=== PATIENT | male | born 1950 | race Caucasian/White ===

== ENCOUNTER 2024-07-09 14:13 | Inpatient (IN) | payer MEDICARE, SELFPAY ==
[2024-07-09] VITALS (32 sets, daily range): BP systolic 97–141; BP diastolic 69–99; PULSE 74–120; TEMP 36–36.9; O2SAT 83–98; BMI 31.8
--- NOTE | 2024-07-09 14:19 | XR_ITS ---
The [address] [address] Patient Name: ANDERSON AGUILAR MRN: [id number] date: 1950 Sex: M Assigned Patient Location: ED.MAIN Current Patient Location: ED.MAIN Accession/Order Number: [id number] Exam Date: 07/09/2024 15:20 Report Date: 07/09/2024 15:51 At the request of: ADE MAR Procedure: XR chest 1V EXAMINATION: XR chest 1V HISTORY: sepsis COMPARISON: No relevant comparison available. TECHNIQUE: AP portable FINDINGS: LUNGS: Low lung volumes. The lungs are clear VASCULATURE: No increased pulmonary vasculature. PLEURA: No pneumothorax, effusion, or pleural thickening. CARDIAC: No cardiomegaly or cardiac silhouette abnormality. MEDIASTINUM: No visible mass or adenopathy. BONES: No fracture or visible bone lesion. Bilateral shoulder arthroplasty OTHER: Negative. XR/XR chest 1V IMPRESSION: Low lung volumes, clear lungs. Electronically authenticated by: OMER VILLAREAL Date: 07/09/2024 15:51
--- NOTE | 2024-07-09 14:19 | ECG_ITS ---
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
--- NOTE | 2024-07-09 14:23 | CT_ITS ---
The [address] [address] Patient Name: ANDERSON AGUILAR MRN: [facility]:[id number] date: 1950 Sex: M Assigned Patient Location: ED.MAIN Current Patient Location: Accession/Order Number: [id number] Exam Date: 07/09/2024 14:45 Report Date: 07/09/2024 15:25 At the request of: ADE MAR Procedure: CT head/brain wo con EXAM: CT head/brain wo con HISTORY: ams COMPARISON: None. TECHNIQUE: Noncontrast CT imaging of the head was performed with coronal and sagittal reformats. This CT exam was performed using one or more of the following dose reduction techniques: Automated exposure control, adjustment of the MA and/or kV according to patient size, or use of iterative reconstruction technique. FINDINGS: Calvarium/skull base: No evidence of acute fracture or destructive lesion. Bilaterally ocular lens replacements. Mastoid air cells are well aerated. Paranasal sinuses: No air fluid levels. Brain: No acute intracranial hemorrhage. No acute large vascular territory infarct. Mild to moderate parenchymal volume loss. Minimal symmetric hypoattenuation involving the frontal predominant supratentorial white matter which while nonspecific most commonly relates to sequela of small vessel disease. No mass lesion or mass effect. No hydrocephalus. CT/CT head/brain wo con IMPRESSION: No acute large vascular territory infarct or acute intracranial hemorrhage. If there is clinical concern for acute ischemia recommend MRI brain for further evaluation. Electronically authenticated by: ANALIA AYALA Date: 07/09/2024 15:25
--- NOTE | 2024-07-09 14:23 | ED.GENADUL1 ---
HPI HPI - General Adult General Chief complaint: Arrhythmia/Palpitations Stated complaint: WEAKNESS Time Seen by Provider: 07/09/24 14:19 Source: patient Mode of arrival: ambulance History of Present Illness HPI narrative: Patient presents to ED from the [facility] for evaluation. Apparently he was not as responsive yesterday and sort of lethargic and then he was much worse today so they sent him over for evaluation. He has increased confusion lethargy elevated heart rate. There was also some report of him may be leaning towards the right. Upon arrival patient is tachycardic mildly hypotensive. He is lethargic but does respond to my voice. He was able to squeeze with both hands and move his feet. 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 Patient does not have any pain at this time. Patient does have a Kingsley catheter in place very cloudy urine. No fever here axillary temperature was obtained. Patient does not have any abdominal pain on palpation. No lower extremity edema Related Data Home Medications ?Medication ?Instructions ?Recorded ?Confirmed acetaminophen 500 mg capsule 1,000 mg PO Q6H PRN pain 07/09/24 07/09/24 albuterol sulfate 90 mcg/actuation 2 inh inhalation Q6H 07/09/24 07/09/24 breath activated powder inhaler allopurinol 300 mg tablet 300 mg PO DAILY 07/09/24 07/09/24 aspirin 81 mg capsule 81 mg PO DAILY 07/09/24 07/09/24 atorvastatin 40 mg tablet 40 mg PO DAILY 07/09/24 07/09/24 docusate sodium 100 mg capsule 100 mg PO DAILY 07/09/24 07/09/24 (Colace) levothyroxine 88 mcg tablet 88 mcg PO DAILY 07/09/24 07/09/24 meclizine 25 mg tablet 25 mg PO BID PRN dizziness 07/09/24 07/09/24 metformin 1,000 mg tablet 1,000 mg PO BID 07/09/24 07/09/24 nortriptyline 50 mg capsule 50 mg PO DAILY 07/09/24 07/09/24 nystatin 100,000 unit/gram topical 1 applic topical BID 07/09/24 07/09/24 powder pantoprazole 40 mg tablet,delayed 40 mg PO DAILY 07/09/24 07/09/24 release polyethylene glycol 3350 17 17 g PO DAILY 07/09/24 07/09/24 gram/dose oral powder (Miralax) pregabalin 300 mg capsule 300 mg PO BID 07/09/24 07/09/24 sertraline 50 mg tablet 50 mg PO DAILY 07/09/24 07/09/24 tamsulosin 0.4 mg capsule 0.4 mg PO BID 07/09/24 07/09/24 tramadol 50 mg tablet 50 mg PO BID 07/09/24 07/09/24 Allergies Allergy/AdvReac Type Severity Reaction Status Date / Time NSAIDS (Non-Steroidal Allergy Severe Unknown Verified 07/09/24 14:36 Anti-Inflamma sulfamethoxazole Allergy Severe Unknown Verified 07/09/24 14:36 trimethoprim Allergy Severe Unknown Verified 07/09/24 14:36 Opioid HPI Opioid Management Most Recent Opioid Data: No Data to Display Review of Systems ROS Status of ROS unobtainable due to medical condition [facility] Medical History (Updated 07/09/24 @ 16:59 by Brie Daley DO) UTI (urinary tract infection) ?N39.0 - Urinary tract infection, site not specified (ICD-10) Pneumonia ?J18.9 - Pneumonia, unspecified organism (ICD-10) Sepsis ?A41.9 - Sepsis, unspecified organism (ICD-10) Fall ?W19.XXXA - Unspecified fall, initial encounter (ICD-10) Non-pressure chronic ulcer of other part of left foot with unspecified severity ?L97.529 - Non-pressure chronic ulcer of other part of left foot with unspecified severity (ICD-10) Non-pressure chronic ulcer of other part of right foot with other specified severity ?L97.518 - Non-pressure chronic ulcer of other part of right foot with other specified severity (ICD-10) Gout ?M10.9 - Gout, unspecified (ICD-10) Obstructive sleep apnea ?G47.33 - Obstructive sleep apnea (adult) (pediatric) (ICD-10) Dehydration ?E86.0 - Dehydration (ICD-10) Rhabdomyolysis ?M62.82 - Rhabdomyolysis (ICD-10) Metabolic encephalopathy ?G93.41 - Metabolic encephalopathy (ICD-10) BPH (benign prostatic hyperplasia) ?N40.0 - Benign prostatic hyperplasia without lower urinary tract symptoms (ICD-10) 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 - Sideropenic dysphagia (ICD-10) Hyperlipidemia ?E78.5 - Hyperlipidemia, unspecified (ICD-10) Sciatica ?M54.30 - Sciatica, unspecified side (ICD-10) Type 2 diabetes mellitus ?E11.9 - Type 2 diabetes mellitus without complications (ICD-10) Slurred speech ?R47.81 - Slurred speech (ICD-10) Obstructive and reflux uropathy ?N13.9 - Obstructive and reflux uropathy, unspecified (ICD-10) Kidney disease ?N28.9 - Disorder of kidney and ureter, unspecified (ICD-10) Hypotension ?I95.9 - Hypotension, unspecified (ICD-10) Acute kidney failure ?N17.9 - Acute kidney failure, unspecified (ICD-10) Exam Narrative Exam Narrative: Time Seen: [] Vital Signs: [Per nurse's notes.] General: Lethargic Skin: [Warm, dry, no rash.] Head: [Normocephalic, patient does have a bruise over the left zygoma. Unsure if this is new or old or if he had a fall Neck: [Supple, trachea midline.] Eye: [Pupils are equal, round and reactive to light, extraocular movements are intact, normal conjunctiva.] Ears, nose, mouth and throat: oral mucosa dry Cardiovascular: Tachycardia no murmur.] Respiratory: Diminished breath sounds bilateral bases, respirations are non-labored, breath sounds are equal.] Gastrointestinal: [Soft, nontender, non distended, normal bowel sounds.] MSK: 4 out of 5 muscle strength x 4 extremities no calf pain or edema. Neurological: [Alert and oriented to person, lethargic follows commands, moves all 4 extremities, equal acid strength inspector strength bilaterally, no focal neurological deficit observed.] Constitutional Vital Signs, click to edit/add: Last Vital Signs Temp 96.8 F L 07/09/24 14:19 Pulse 116 H 07/09/24 16:40 Resp 19 07/09/24 16:40 BP 110/95 H 07/09/24 16:31 Pulse Ox 88 L 07/09/24 16:16 O2 Del Method Room Air 07/09/24 14:13 Course Vital Signs Vital signs: Vital Signs Pulse Rate 117 H 07/09/24 14:13 Respiratory Rate 22 H 07/09/24 14:13 Blood Pressure 111/71 07/09/24 14:13 Pulse Oximetry 96 07/09/24 14:13 Oxygen Delivery Method Room Air 07/09/24 14:13 Temperature 96.8 F L 07/09/24 14:19 Pulse Rate 116 H 07/09/24 16:40 Respiratory Rate 19 07/09/24 16:40 Blood Pressure 110/95 H 07/09/24 16:31 Pulse Oximetry 88 L 07/09/24 16:16 Oxygen Delivery Method Room Air 07/09/24 14:13 Medical Decision Making MDM Narrative Medical decision making narrative: Patient was found to be in sepsis. Patient had an elevated lactate elevated heart rate and low blood pressure. He was responding very well to fluids and his blood pressure went up to the 130s systolic. Patient was started on Levaquin for a urinary tract infection. The Kingsley catheter was changed because it was very dirty looking. The urine was cloudy. Patient was doing better after IV fluids and IV antibiotics. Patient at this time does not need ICU admission. Patient will be admitted to Dr. Horton for further management of the sepsis and urinary infection with altered mentation. Patient does have elevated creatinine however I do not have an old one here for comparison. Differential Diagnosis Differential Diagnosis: Sepsis UTI stroke intracranial hemorrhage electrolyte abnormality Lab Data Lab results reviewed: Yes I reviewed the patient's lab results Labs: Lab Results 07/09/24 07/09/24 07/09/24 Range/Units 14:26 14:36 15:31 WBC 21.1 H (4.0-11.0) 10^3/uL RBC 5.23 (4.70-6.10) 10^6/uL Hgb 15.3 (14.0-18.0) g/dL Hct 47.0 (42.0-54.0) % MCV 89.9 (80.0-94.0) fL MCH 29.3 (25.9-34.0) pg MCHC 32.6 (29.9-35.2) g/dL RDW 19.0 H (11.0-15.0) % Plt Count 151 (150-450) 10^3/uL Neut % (Auto) 83.1 H (43.0-75.0) % Lymph % (Auto) 10.8 L (20.5-60.0) % [place] % (Auto) 5.1 (1.7-12.0) % Eos % (Auto) 0.1 L (0.9-7.0) % Baso % (Auto) 0.1 L (0.2-2.0) % Neut # (Auto) 17.5 H (1.4-6.5) 10^3/uL Lymph # (Auto) 2.3 (1.2-3.8) 10^3/uL [place] # (Auto) 1.1 H (0.3-0.8) 10^3/uL Eos # (Auto) 0.0 (0.0-0.7) 10^3/uL Baso # (Auto) 0.0 (0.0-0.1) 10^3/uL Abs Immat Gran (auto) 0.16 H (0.00-0.03) 10^3/uL Imm/Tot Granulo (auto) 0.8 H (0.0-0.5) % PT 12.3 H (9.0-11.6) sec INR 1.18 Sodium 143 (136-145) mmol/L Potassium 4.0 (3.5-5.1) mmol/L Chloride 104 (98-107) mmol/L Carbon Dioxide 24.5 (21.0-32.0) mmol/L Anion Gap 18.5 BUN 61.0 H (7.0-18.0) mg/dL Creatinine 2.77 H (0.70-1.30) mg/dL Est GFR ( Amer) 28 L (>=60 mL/min/1.73m^2) Est GFR (Non-Af Amer) 23 L (>=60 mL/min/1.73m^2) BUN/Creatinine Ratio 22.0 Glucose 156 H (74-106) mg/dL Lactate 2.7 H* (0.4-2.0) mmol/L Calcium 8.3 L (8.5-10.1) mg/dL Total Bilirubin 0.9 (0.2-1.0) mg/dL AST 12 L (15-37) U/L ALT 7 L (16-63) U/L Alkaline Phosphatase 138 H (46-116) U/L Troponin I High Sens 9.8 (4.0-76.1) pg/mL Total Protein 6.8 (6.4-8.2) g/dL Albumin 2.7 L (3.4-5.0) g/dL Globulin 4.1 g/dL Albumin/Globulin Ratio 0.7 Urine Color Yellow (YELLOW) Urine Clarity Clear (CLEAR) Urine pH 6.0 (5.0-9.0) Ur Specific [place] 1.025 (1.005-1.025) Urine Protein >=300 A (NEG/TRACE) mg/dL Urine Glucose (UA) Negative (NEGATIVE) mg/dL Urine Ketones Trace A (NEGATIVE) mg/dL Urine Occult Blood Large A (NEGATIVE) Urine Nitrite Negative (NEGATIVE) Urine Bilirubin Small A (NEGATIVE) Urine Urobilinogen 1.0 (0.2-1.0) EU/dL Ur Leukocyte Esterase Moderate A (NEGATIVE) Urine RBC 5-10 A (0-2) #/HPF Urine WBC 75-100 A (NONE SEEN) #/HPF Ur Squamous Epith Cells Rare (NONE/RARE) #/LPF Urine Crystals None seen (None Seen) #/HPF Urine Bacteria Moderate A (NONE SEEN) #/HPF Urine Casts Seen A (NONE SEEN) #/LPF Hyaline Casts Rare Urine Mucus None seen (NONE SEEN) Ur Culture Indicated? [facility] Influenza Type A Ag Negative Influenza Type B Ag Negative SARS-CoV-2 Ag (CV2AG) Negative (NEGATIVE) ECG Data Attestation: I personally reviewed and interpreted this ECG as follows: Interpretation: EKG INTERPRETATION Time: [] 1421 Rate: [] 110 Rhythm: _ [] Sinus tachycardia ST segments: _ [] No acute ST elevation or depression T waves: _ [] Ectopy: _ [] P wave/MI interval: _ [] QRS interval: _ [] QT interval: _ [] Comparison: _ [] Comparison EKG date: [] Performed by: [self] Discharge Plan Discharge Chief Complaint: Arrhythmia/Palpitations Clinical Impression: Sepsis, Acute UTI, AMS (altered mental status) Patient Disposition: Admitted As Inpatient Time of Disposition Decision: 16:59 Condition: Serious Prescriptions / Home Meds: No Action atorvastatin 40 mg tablet 40 mg PO DAILY levothyroxine 88 mcg tablet 88 mcg PO DAILY tamsulosin 0.4 mg capsule 0.4 mg PO BID meclizine 25 mg tablet 25 mg PO BID PRN (Reason: dizziness) pantoprazole 40 mg tablet,delayed release (DR/EC) 40 mg PO DAILY metformin 1,000 mg tablet 1,000 mg PO BID allopurinol 300 mg tablet 300 mg PO DAILY nortriptyline 50 mg capsule 50 mg PO DAILY pregabalin 300 mg capsule 300 mg PO BID sertraline 50 mg tablet 50 mg PO DAILY tramadol 50 mg tablet 50 mg PO BID docusate sodium [Colace] 100 mg capsule 100 mg PO DAILY aspirin 81 mg capsule 81 mg PO DAILY acetaminophen 500 mg capsule 1,000 mg PO Q6H PRN (Reason: pain) albuterol sulfate 90 mcg/actuation aerosol powdr breath activated 2 inh inhalation Q6H polyethylene glycol 3350 [Miralax] 17 gram/dose powder 17 g PO DAILY nystatin 100,000 unit/gram powder 1 applic topical BID Print Language: Romansh Referrals: DARIUSZ PROCTOR DO [Primary Care Provider] - 1 week
[2024-07-09 14:57] LABS: Basophils Percent Auto 0.1 % (0.2-2.0); Eosinophils Percent Auto 0.1 % (0.9-7.0); Hemoglobin 15.3 g/dL (14.0-18.0); Immature Granulocytes Abs Auto 0.16 10^3/uL (0.00-0.03); Immature Granulocytes Pct Auto 0.8 % (0.0-0.5); Lymphocytes Absolute Auto 2.3 10^3/uL (1.2-3.8); Lymphocytes Percent Auto 10.8 % (20.5-60.0); Mean Corpuscular HGB Conc 32.6 g/dL (29.9-35.2); Mean Corpuscular Hemoglobin 29.3 pg (25.9-34.0); Mean Corpuscular Volume 89.9 fL (80.0-94.0); Monocytes Absolute Auto 1.1 10^3/uL (0.3-0.8); Monocytes Percent Auto 5.1 % (1.7-12.0); Neutrophils Absolute Auto 17.5 10^3/uL (1.4-6.5); Neutrophils Percent Auto 83.1 % (43.0-75.0); Platelet Count 151 10^3/uL (150-450); Red Blood Count 5.23 10^6/uL (4.70-6.10); White Blood Count 21.1 10^3/uL (4.0-11.0)
[2024-07-09] MEDS: 0.9 % SODIUM CHLORIDE 1,000 ML 1000 ML IV (15:03)
[2024-07-09 15:06] LABS: Internal Control Within Normal Limits; SARS-CoV-2 Ag NEGATIVE (NEGATIVE)
[2024-07-09 15:07] LABS: Influenza Virus A Antigen Negative; Influenza Virus B Antigen Negative; Internal Control Within Normal Limits
[2024-07-09 15:09] LABS: INR 1.18; Prothrombin Time 12.3 sec (9.0-11.6)
[2024-07-09 15:11] LABS: Alanine Aminotransferase 7 U/L (16-63); Albumin Globulin Ratio 0.7; Albumin Level 2.7 g/dL (3.4-5.0); Alkaline Phosphatase 138 U/L (46-116); Anion Gap 18.5; Aspartate Amino Transferase 12 U/L (15-37); Bilirubin Total 0.9 mg/dL (0.2-1.0); Calcium 8.3 mg/dL (8.5-10.1); Carbon Dioxide 24.5 mmol/L (21.0-32.0); Chloride 104 mmol/L (98-107); Estimated GFR (African America 28 (>=60 mL/min/1.73m^2); Estimated GFR (Non-African Ame 23 (>=60 mL/min/1.73m^2); Globulin 4.1 g/dL; Glucose 156 mg/dL (74-106); Sodium 143 mmol/L (136-145); Total Protein 6.8 g/dL (6.4-8.2)
[2024-07-09 15:14] LABS: Troponin I High Sensitivity 9.8 pg/mL (4.0-76.1)
[2024-07-09 15:16] LABS: Lactate/Lactic Acid 2.7 mmol/L (0.4-2.0)
[2024-07-09] MEDS: LEVOFLOXACIN IN DEXTROSE 5 % 750 MG/150 ML PREMIX 100 MG IV (15:34)
[2024-07-09 15:37] LABS: Bilirubin Urine SMALL (NEGATIVE); Blood Urine LARGE (NEGATIVE); Clarity Urine CLEAR (CLEAR); Color Urine YELLOW (YELLOW); Glucose Urine UA NEGATIVE (NEGATIVE); Ketones Urine TRACE mg/dL (NEGATIVE); Leukocyte Esterase Urine MODERATE (NEGATIVE); Nitrite Urine NEGATIVE (NEGATIVE); Protein Urine >=300 mg/dL (NEG/TRACE); Specific Gravity Urine 1.025 (1.005-1.025)
[2024-07-09 15:38] LABS: Urine Microscopic Indicated YES
[2024-07-09 15:49] LABS: Mucus Urine NONE SEEN (NONE SEEN); Squamous Epithelial Cell Urine RARE #/LPF (NONE/RARE); WBC Urine 75-100 #/HPF (NONE SEEN)
[2024-07-09 15:50] LABS: Bacteria Urine MODERATE #/HPF (NONE SEEN); Cast Seen? SEEN #/LPF (NONE SEEN); Crystals Seen? None Seen #/HPF (None Seen); Hyaline Casts Urine RARE; Urine Culture Indicated LABCORP
--- NOTE | 2024-07-09 17:58 | P.HP_ITS ---
HPI H&P: HPI History of Present Illness Chief complaint: AMS UTI SEPSIS Narrative: Patient had acute alteration in mental status, severely increased lethargy, recommended referral to the emergency room, he is a resident at a long-term care facility, in ER found to have acute sepsis, severe, with altered mental status, acute kidney injury consistent with multisystem organ dysfunction When I saw patient up in the medical surgical floor, he was resting fairly comfortably but from a breathing standpoint he would open his eyes and appear to answer questions I think appropriately, try to get more history from his but she did not answer the phone Opioid HPI Opioid Management Most Recent Pain and Opioid Data: Last Pain Assessment 07/09/24 18:56 Last ORT Total Score 0 07/09/24 17:34 07/09/24 Last ORT Risk Category Low Risk 07/09/24 17:34 07/09/24 Review of Systems ROS Status of ROS 10 or more systems reviewed and unremark able except as noted in history and below [facility] Medical History (Updated 07/09/24 @ 16:59 by Brie Daley DO) UTI (urinary tract infection) ?N39.0 - Urinary tract infection, site not specified (ICD-10) Pneumonia ?J18.9 - Pneumonia, unspecified organism (ICD-10) Sepsis ?A41.9 - Sepsis, unspecified organism (ICD-10) Fall ?W19.XXXA - Unspecified fall, initial encounter (ICD-10) Non-pressure chronic ulcer of other part of left foot with unspecified severity ?L97.529 - Non-pressure chronic ulcer of other part of left foot with unspecified severity (ICD-10) Non-pressure chronic ulcer of other part of right foot with other specified severity ?L97.518 - Non-pressure chronic ulcer of other part of right foot with other specified severity (ICD-10) Gout ?M10.9 - Gout, unspecified (ICD-10) Obstructive sleep apnea ?G47.33 - Obstructive sleep apnea (adult) (pediatric) (ICD-10) Dehydration ?E86.0 - Dehydration (ICD-10) Rhabdomyolysis ?M62.82 - Rhabdomyolysis (ICD-10) Metabolic encephalopathy ?G93.41 - Metabolic encephalopathy (ICD-10) BPH (benign prostatic hyperplasia) ?N40.0 - Benign prostatic hyperplasia without lower urinary tract symptoms (ICD-10) 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 - Sideropenic dysphagia (ICD-10) Hyperlipidemia ?E78.5 - Hyperlipidemia, unspecified (ICD-10) Sciatica ?M54.30 - Sciatica, unspecified side (ICD-10) Type 2 diabetes mellitus ?E11.9 - Type 2 diabetes mellitus without complications (ICD-10) Slurred speech ?R47.81 - Slurred speech (ICD-10) Obstructive and reflux uropathy ?N13.9 - Obstructive and reflux uropathy, unspecified (ICD-10) Kidney disease ?N28.9 - Disorder of kidney and ureter, unspecified (ICD-10) Hypotension ?I95.9 - Hypotension, unspecified (ICD-10) Acute kidney failure ?N17.9 - Acute kidney failure, unspecified (ICD-10) Meds Home Medications and Allergies Home Medications ?Medication ?Instructions ?Recorded ?Confirmed ?Type acetaminophen 500 mg capsule 1,000 mg PO Q6H PRN pain 07/09/24 07/09/24 History albuterol sulfate 90 mcg/actuation 2 inh inhalation Q6H 07/09/24 07/09/24 History breath activated powder inhaler allopurinol 300 mg tablet 300 mg PO DAILY 07/09/24 07/09/24 History aspirin 81 mg capsule 81 mg PO DAILY 07/09/24 07/09/24 History atorvastatin 40 mg tablet 40 mg PO DAILY 07/09/24 07/09/24 History docusate sodium 100 mg capsule 100 mg PO DAILY 07/09/24 07/09/24 History (Colace) levothyroxine 88 mcg tablet 88 mcg PO DAILY 07/09/24 07/09/24 History meclizine 25 mg tablet 25 mg PO BID PRN dizziness 07/09/24 07/09/24 History metformin 1,000 mg tablet 1,000 mg PO BID 07/09/24 07/09/24 History nortriptyline 50 mg capsule 50 mg PO .QHS 07/09/24 07/09/24 History nystatin 100,000 unit/gram topical 1 applic topical BID 07/09/24 07/09/24 History powder pantoprazole 40 mg tablet,delayed 40 mg PO DAILY 07/09/24 07/09/24 History release polyethylene glycol 3350 17 17 g PO DAILY 07/09/24 07/09/24 History gram/dose oral powder (Miralax) pregabalin 300 mg capsule 300 mg PO BID 07/09/24 07/09/24 History sertraline 50 mg tablet 50 mg PO DAILY 07/09/24 History tamsulosin 0.4 mg capsule 0.4 mg PO BID 07/09/24 07/09/24 History tramadol 50 mg tablet 50 mg PO BID 07/09/24 History Allergies Allergy/AdvReac Type Severity Reaction Status Date / Time NSAIDS (Non-Steroidal Allergy Severe Unknown Verified 07/09/24 14:36 Anti-Inflamma sulfamethoxazole Allergy Severe Unknown Verified 07/09/24 14:36 trimethoprim Allergy Severe Unknown Verified 07/09/24 14:36 Exam Constitutional Vital Signs, click to edit/add: Last Vital Signs Temp 96.8 F L 07/09/24 14:19 Pulse 116 H 07/09/24 16:40 Resp 19 07/09/24 16:40 BP 110/95 H 07/09/24 16:31 Pulse Ox 88 L 07/09/24 16:16 O2 Del Method Room Air 07/09/24 14:13 Documenting provider has reviewed patient's vital signs: yes Common normals: no apparent distress HENMT Common normals: normocephalic Chest Common normals: inspection of chest normal Respiratory Common normals: normal respiratory effort and no retractions Cardio Common normals: regular rate Neuro Common normals: CN's II-XII intact bilaterally and moves all extremities Results Labs Labs: Short CBC 07/09/24 Range/Units 14:26 WBC 21.1 H (4.0-11.0) 10^3/uL Hgb 15.3 (14.0-18.0) g/dL Hct 47.0 (42.0-54.0) % Plt Count 151 (150-450) 10^3/uL BMP 07/09/24 14:26 Sodium 143 Potassium 4.0 Chloride 104 Carbon Dioxide 24.5 BUN 61.0 H Creatinine 2.77 H Glucose 156 H Calcium 8.3 L Liver Function 07/09/24 Range/Units 14:26 Total Bilirubin 0.9 (0.2-1.0) mg/dL AST 12 L (15-37) U/L ALT 7 L (16-63) U/L Alkaline Phosphatase 138 H (46-116) U/L Albumin 2.7 L (3.4-5.0) g/dL Urine 07/09/24 Range/Units 15:31 Urine Color Yellow (YELLOW) Urine Clarity Clear (CLEAR) Urine pH 6.0 (5.0-9.0) Ur Specific [place] 1.025 (1.005-1.025) Urine Protein >=300 A (NEG/TRACE) mg/dL Urine Glucose (UA) Negative (NEGATIVE) mg/dL Assessment and Plan Assessment and Plan (1) AMS (altered mental status): (2) Acute UTI: (3) Sepsis: Plan Admission findings: Hypothermia, sinus tachycardia, respiratory distress, hypote nsion, acute hypoxia, leukocytosis, lactic acidosis, elevated liver function test secondary to acute UTI secondary to chronic indwelling Kingsley catheter complication, resulting in severe sepsis without shock but with multisystem organ dysfunction Severe sepsis with multisystem organ dysfunction secondary to acute UTI secondary to complications from chronic indwelling Kingsley catheter-IV antibi otics, broad-spectrum, patient is a resident care facility, blood cultures pending, fluid resuscitation initiated in ER will add as needed bolus as well, start patient on hydrocortisone for 3 doses to maintain blood pressure control Multisystem organ dysfunction secondary to above- Elevated liver function test with coagulopathy-repeat in a.m. Leukocytosis secondary to above-repeat in a.m. Acute elevation in creatinine acute kidney injury stage II-repeat in a.m., unable to obtain baseline, but if his baseline is normal this is at least 250% above baseline, be acute kidney injury stage II Hypoalbuminemia-supplement when patient able to take oral Hypercholesterolemia-will hold meds currently NIDDM-insulin sliding scale, will hold oral agents GERD-IV Protonix Depression-continue with home medications BPH-continue with home medications, although may stop tamsulosin as he does have a chronic indwelling Kingsley Admission status: Patient with severe sepsis with multisystem organ dysfunction secondary to 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 Inpatient status Urinary Catheter Management Urinary Catheter Management Urethral: Cath placed during this visit: yes Urethral indwelling: Yes Reason for continuing: acute urinary retention Insertion date: 07/09/24 Insertion time: 14:38
[2024-07-09 17:59] LABS: Lactate/Lactic Acid 1.7 mmol/L (0.4-2.0)
[2024-07-09 18:28] LABS: pH VBG 7.403 (7.330-7.430)
[2024-07-09 18:29] LABS: PCO2 VBG 36.7 mmHg (40.0-52.0)
[2024-07-09 18:43] LABS: Troponin I High Sensitivity 14.7 pg/mL (4.0-76.1)
[2024-07-09 18:47] LABS: Magnesium 0.8 mg/dL (1.8-2.4)
[2024-07-09] MEDS: 0.9 % SODIUM CHLORIDE 250 ML 10 ML IV (20:30)
[2024-07-09 20:33] LABS: Glucometer 114 mg/dL (74-106)
[2024-07-09] MEDS: HYDROCORTISONE SODIUM SUCC PF 100 MG/2 ML VIAL IVP (20:33)
[2024-07-09] MEDS: PIPERACILLIN SODIUM/TAZOBACTAM 3.375 GM in 0.9 % SODIUM CHLORIDE 50 ML IV (20:37)
[2024-07-09] MEDS: 0.9 % SODIUM CHLORIDE 500 ML 250 ML IV (20:37)
[2024-07-09 21:21] LABS: Troponin I High Sensitivity 16.4 pg/mL (4.0-76.1)
[2024-07-09] MEDS: NYSTATIN 15 GM POWDER 1 APPLIC TOPICAL (21:28)
[2024-07-09] MEDS: ENSURE HP 237 ML LIQUID PO (21:28)
[2024-07-09] MEDS: PROSTAT 15 GM PROTEIN/100 CAL 30 ML LIQUID PACKET PO (21:29)
[2024-07-09] MEDS: PREGABALIN 100 MG CAPSULE 300 MG PO (21:29)
[2024-07-09] MEDS: TAMSULOSIN HCL 0.4 MG CAPSULE PO (21:29)
[2024-07-09] MEDS: PANTOPRAZOLE SODIUM 40 MG VIAL IV (21:32)
[2024-07-09] MEDS: ENOXAPARIN SODIUM 40 MG/0.4 ML SYRINGE SUBQ (21:32)
[2024-07-09] MEDS: IPRATROPIUM/ALBUTEROL SULFATE 3 ML AMPUL.NEB IH (22:56)
[2024-07-09] MEDS: MAGNESIUM SULFATE IN WATER 4 GM/100 ML PIGGYBACK IV (23:09)
[2024-07-10] VITALS (21 sets, daily range): BP systolic 101–115; BP diastolic 62–74; PULSE 92–108; TEMP 36.3–36.5; O2SAT 91–97
[2024-07-10] MEDS: 0.9 % SODIUM CHLORIDE 1,000 ML 1000 ML IV (02:52)
[2024-07-10] MEDS: HYDROCORTISONE SODIUM SUCC PF 100 MG/2 ML VIAL IVP ×2 (04:02→12:08)
[2024-07-10] MEDS: PIPERACILLIN SODIUM/TAZOBACTAM 3.375 GM in 0.9 % SODIUM CHLORIDE 50 ML IV ×3 (04:03→20:32)
[2024-07-10] MEDS: IPRATROPIUM/ALBUTEROL SULFATE 3 ML AMPUL.NEB IH ×4 (04:41→23:13)
[2024-07-10] MEDS: LEVOTHYROXINE SODIUM 88 MCG TABLET PO (05:36)
[2024-07-10 05:37] LABS: Basophils Percent Auto 0.1 % (0.2-2.0); Hematocrit 39.6 % (42.0-54.0); Hemoglobin 12.9 g/dL (14.0-18.0); Immature Granulocytes Abs Auto 0.14 10^3/uL (0.00-0.03); Immature Granulocytes Pct Auto 1.1 % (0.0-0.5); Lymphocytes Absolute Auto 1.1 10^3/uL (1.2-3.8); Lymphocytes Percent Auto 8.6 % (20.5-60.0); Mean Corpuscular HGB Conc 32.6 g/dL (29.9-35.2); Mean Corpuscular Hemoglobin 29.3 pg (25.9-34.0); Mean Corpuscular Volume 89.8 fL (80.0-94.0); Monocytes Absolute Auto 0.3 10^3/uL (0.3-0.8); Monocytes Percent Auto 2.7 % (1.7-12.0); Neutrophils Absolute Auto 11.1 10^3/uL (1.4-6.5); Neutrophils Percent Auto 87.5 % (43.0-75.0); Platelet Count 93 10^3/uL (150-450); Red Blood Count 4.41 10^6/uL (4.70-6.10); Red Cell Distribution Width 18.2 % (11.0-15.0); White Blood Count 12.6 10^3/uL (4.0-11.0)
[2024-07-10 05:48] LABS: Alanine Aminotransferase 9 U/L (16-63); Albumin Globulin Ratio 0.6; Albumin Level 2.1 g/dL (3.4-5.0); Alkaline Phosphatase 111 U/L (46-116); Anion Gap 19.1; Aspartate Amino Transferase 28 U/L (15-37); BUN Creatinine Ratio 23.5; Bilirubin Total 0.6 mg/dL (0.2-1.0); Calcium 7.6 mg/dL (8.5-10.1); Chloride 109 mmol/L (98-107); Estimated GFR (African America 29 (>=60 mL/min/1.73m^2); Estimated GFR (Non-African Ame 24 (>=60 mL/min/1.73m^2); Globulin 3.4 g/dL; Glucose 160 mg/dL (74-106); Potassium 4.1 mmol/L (3.5-5.1); Sodium 144 mmol/L (136-145); Total Protein 5.5 g/dL (6.4-8.2)
--- NOTE | 2024-07-10 05:56 | XR_ITS ---
The [address] [address] Patient Name: ANDERSON AGUILAR MRN: [id number] date: 1950 Sex: M Assigned Patient Location: [place] Current Patient Location: [place] Accession/Order Number: [id number] Exam Date: 07/10/2024 06:30 Report Date: 07/10/2024 07:12 At the request of: TASNEEM ROMERO Procedure: XR chest 1V Exam: Radiographs: XR chest 1V Reason for exam: acute hypoxia Comparison: Chest x-ray from yesterday XR/XR chest 1V IMPRESSION: Minimal linear atelectasis in the right lower lung. Bilateral shoulder arthroplasties. Remainder of the chest is unremarkable. Electronically authenticated by: YUE BRADLEY Date: 07/10/2024 07:12
[2024-07-10 05:57] LABS: Magnesium 1.9 mg/dL (1.8-2.4)
--- NOTE | 2024-07-10 06:13 | P.PN_ITS ---
Progress Note: Subjective Subjective Interval history: Patient looks much improved today, awake alert and answering questions, denies complaint, does not remember getting here Exam Constitutional Vital Signs, click to edit/add: Last Vital Signs Temp 97.4 F L 07/10/24 02:57 Pulse 106 H 07/10/24 06:05 Resp 18 07/10/24 04:41 BP 101/66 07/10/24 02:57 Pulse Ox 91 L 07/10/24 04:41 O2 Del Method Nasal Cannula 07/10/24 04:41 O2 Flow Rate 2 07/10/24 04:41 Documenting provider has reviewed patient's vital signs: yes Common normals: no apparent distress HENMT Common normals: normocephalic Chest Common normals: inspection of chest normal Respiratory Common normals: normal respiratory effort and clear to auscultation bilaterally Cardio Common normals: regular rate, regular rhythm and no murmurs GI Common normals: soft to palpation Neuro Common normals: CN's II-XII intact bilaterally and moves all extremities Progress Note: Objective Labs Labs: Short CBC 07/09/24 07/10/24 Range/Units 14:26 05:19 WBC 21.1 H 12.6 H (4.0-11.0) 10^3/uL Hgb 15.3 12.9 L (14.0-18.0) g/dL Hct 47.0 39.6 L (42.0-54.0) % Plt Count 151 93 L (150-450) 10^3/uL BMP 07/09/24 07/10/24 14:26 05:19 Sodium 143 144 Potassium 4.0 4.1 Chloride 104 109 H Carbon Dioxide 24.5 20.0 L BUN 61.0 H 63.0 H Creatinine 2.77 H 2.68 H Glucose 156 H 160 H Calcium 8.3 L 7.6 L Liver Function 07/09/24 07/10/24 Range/Units 14:26 05:19 Total Bilirubin 0.9 0.6 (0.2-1.0) mg/dL AST 12 L 28 (15-37) U/L ALT 7 L 9 L (16-63) U/L Alkaline Phosphatase 138 H 111 (46-116) U/L Albumin 2.7 L 2.1 L (3.4-5.0) g/dL Urine 07/09/24 Range/Units 15:31 Urine Color Yellow (YELLOW) Urine Clarity Clear (CLEAR) Urine pH 6.0 (5.0-9.0) Ur Specific [place] 1.025 (1.005-1.025) Urine Protein >=300 A (NEG/TRACE) mg/dL Urine Glucose (UA) Negative (NEGATIVE) mg/dL Progress Note: A&P Assessment and Plan (1) AMS (altered mental status): (2) Acute UTI: (3) Sepsis: Plan Admission findings: Hypothermia, sinus tachycardia, respiratory distress, hypotension, acute hypoxia, leukocytosis, lactic acidosis, elevated liver function test secondary to acute UTI secondary to chronic indwelling Kingsley catheter complication, resulting in severe sepsis without shock but with multisystem organ dysfunction Severe sepsis with multisystem organ dysfunction secondary to acute UTI secondary to complications from chronic indwelling Kingsley catheter-IV antibiotics, broad-spectrum, patient is a resident care facility, blood cultures pending, patient does look much improved today, repeat fluid bolus given overnight, patient awake alert and answering questions Multisystem organ dysfunction secondary to above- Elevated liver function test with coagulopathy-repeat in a.m. Leukocytosis secondary to above-repeat in a. Thrombocytopenia-likely related to sepsis as outlined above, monitor daily Hypomagnesemia-check and repeat levels Acute elevation in creatinine acute kidney injury stage II-repeat in a., unable to obtain baseline, but if his baseline is normal this is at least 250% above baseline, be acute kidney injury stage II Hypoalbuminemia-supplement when patient able to take oral Hypercholesterolemia-will hold meds currently NIDDM-insulin sliding scale, will hold oral agents GERD-IV Protonix Depression-continue with home medications BPH-continue with home medications, although may stop tamsulosin as he does have a chronic indwelling Kingsley Admission status: Patient with severe sepsis with multisystem organ dysfunction secondary to acute UTI 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 Inpatient status Urinary Catheter Management Urinary Catheter Management Urethral: Cath placed during this visit: yes Urethral indwelling: Yes Reason for continuing: acute urinary retention Insertion date: 07/09/24 Insertion time: 14:38
[2024-07-10 07:49] LABS: Glucometer 145 mg/dL (74-106)
[2024-07-10] MEDS: INSULIN ASPART 300 UNIT/3 ML PEN SUBQ ×2 (08:12→22:14)
[2024-07-10] MEDS: PROSTAT 15 GM PROTEIN/100 CAL 30 ML LIQUID PACKET PO ×2 (08:37→22:14)
[2024-07-10] MEDS: ASPIRIN 81 MG TAB.CHEW PO (08:37)
[2024-07-10] MEDS: NYSTATIN 15 GM POWDER 1 APPLIC TOPICAL ×2 (08:37→22:13)
[2024-07-10] MEDS: PREGABALIN 100 MG CAPSULE 300 MG PO ×2 (08:39→22:15)
[2024-07-10] MEDS: SERTRALINE HCL 50 MG TABLET PO (08:40)
[2024-07-10] MEDS: TAMSULOSIN HCL 0.4 MG CAPSULE PO ×2 (08:40→22:15)
--- NOTE | 2024-07-10 09:29 | CM.NOTE ---
Rounds made with Dr. Horton, pt more awake today and answers questions appropriately. No discharge today, will continue monitoring and IV antibiotics. Pt continues to require oxygen @2L NC.
--- NOTE | 2024-07-10 09:39 | SWNOTE1 ---
Pt is from [facility] and he will be a precert to return. Denilson at [facility] is checking to see how much oxygen he wears there.
--- NOTE | 2024-07-10 10:42 | SWNOTE1 ---
Pt is from the [facility] and is a precert to return. SW spoke to Linda at [facility] and pt did not pay to hold the bed. She voiced she is not sure they will have a bed for him at this time. SW to speak with pt.
--- NOTE | 2024-07-10 11:19 | SWNOTE1 ---
SW stopped in to speak with pt. Pt was sitting chair. Pt does confirm he was at the [facility] and he did like it there. SW did let him know that [facility] is not sure they will have a bed for him at this time to return there. Pt does have some mumbled speech and is hard to understand. SW did ask permission to call his to see if they are open to other facilities. Pt shook his head yes when SW asked to call his . SW did let him know that SW has a Medicare paper to review with him as well, SW asked permission to review with his ? He shook his head yes.
--- NOTE | 2024-07-10 11:20 | SWNOTE1 ---
SW called pt's , no answer, left message.
[2024-07-10 11:29] LABS: Glucometer 104 mg/dL (74-106)
[2024-07-10] MEDS: 0.9 % SODIUM CHLORIDE 250 ML 10 ML IV (12:09)
--- NOTE | 2024-07-10 12:56 | SWNOTE1 ---
OSWALD called pt's , Concepcion and spoke to her about [facility]. SW informed her that the [facility] does not have a bed for him. She voiced that she did not pay to hold the bed as it was too expensive. SW did ask how long he has been at [facility], she stated 2-3 weeks. SW asked her what other facility she would like SW to look in to. She stated [facility] in [place]. SW to send referral. SW called and left a message for admissions, waiting to hear back. SW faxed referral 3x and it did not go through. SW attempted to call admissions again, had to leave message.
--- NOTE | 2024-07-10 12:59 | SWNOTE1 ---
Important Message from Medicare reviewed and discussed with patient's over the phone. Pt's verbalized understanding and SW signed the form that it was reviewed and no further questions at this time. Original placed in pt's room and copy placed in patient?s chart.
--- NOTE | 2024-07-10 14:20 | SWNOTE1 ---
OSWALD called [facility] again and asked if Jaqui from admissions was in, they stated no but they will connect SW with the SW covering for her. OSWALD spoke to Allen the SW. He voiced he is not sure they will have beds and will not know until tomorrow morning. OSWALD advised Allen that we will have to move on. OSWALD called and spoke to pt's , concepcion. OSWALD let her know that [facility] is not sure on beds at this time. Concepcion would like OSWALD to try to [facility]. OSWALD let her know [facility] the [facility] in [place]. The rehab part is called [facility]. Pt's is alright with this. SW to check in to [facility]. OSWALD called [facility] 3x and no answer from the mud engineer. OSWALD called again and spoke to a nurse on the floor. She was able to give me the name and extension of admissions. OSWALD called back and left message for August in admissions, waiting for call back. OSWALD sent August an email as OSWALD had it on file. OSWALD securely sent referral to August email for her to review. Waiting to hear back.
[2024-07-10 16:32] LABS: Glucometer 145 mg/dL (74-106)
[2024-07-10 19:59] LABS: Glucometer 152 mg/dL (74-106)
[2024-07-10] MEDS: ENSURE HP 237 ML LIQUID PO (22:14)
[2024-07-10] MEDS: PANTOPRAZOLE SODIUM 40 MG VIAL IV (22:15)
[2024-07-10] MEDS: ENOXAPARIN SODIUM 40 MG/0.4 ML SYRINGE SUBQ (22:15)
[2024-07-11] VITALS (23 sets, daily range): BP systolic 90–117; BP diastolic 62–77; PULSE 89–110; TEMP 36.3–36.8; O2SAT 91–97
[2024-07-11] MEDS: PIPERACILLIN SODIUM/TAZOBACTAM 3.375 GM in 0.9 % SODIUM CHLORIDE 50 ML IV ×3 (04:10→20:08)
[2024-07-11] MEDS: IPRATROPIUM/ALBUTEROL SULFATE 3 ML AMPUL.NEB IH ×4 (04:50→22:30)
[2024-07-11] MEDS: LEVOTHYROXINE SODIUM 88 MCG TABLET PO (05:45)
--- NOTE | 2024-07-11 05:52 | P.PN_ITS ---
Progress Note: Subjective Subjective Interval history: Looks even better than yesterday, much more awake and alert Exam Constitutional Vital Signs, click to edit/add: Last Vital Signs Temp 97.4 F L 07/11/24 04:00 Pulse 93 H 07/11/24 05:03 Resp 20 07/11/24 05:03 BP 117/76 07/11/24 04:00 Pulse Ox 96 07/11/24 05:03 O2 Del Method Room Air 07/11/24 05:03 O2 Flow Rate 1 07/11/24 04:50 Documenting provider has reviewed patient's vital signs: yes Common normals: no apparent distress HENMT Common normals: normocephalic Chest Common normals: inspection of chest normal Respiratory Common normals: normal respiratory effort, no retractions and clear to auscultation bilaterally Cardio Common normals: regular rate, regular rhythm, S1 normal heart sound and S2 normal heart sound GI Common normals: Normal to inspection, nondistended, normoactive bowel sounds present, soft to palpation and non-tender Extremity Common normals: abnormal to inspection (Trace edema) Neuro Common normals: CN's II-XII intact bilaterally and moves all extremities Progress Note: Objective Labs Labs: Short CBC 07/10/24 Range/Units 05:19 WBC 12.6 H (4.0-11.0) 10^3/uL Hgb 12.9 L (14.0-18.0) g/dL Hct 39.6 L (42.0-54.0) % Plt Count 93 L (150-450) 10^3/uL Progress Note: A&P Assessment and Plan (1) AMS (altered mental status): (2) Acute UTI: (3) Sepsis: Plan Admission findings: Hypothermia, sinus tachycardia, respiratory distress, hypotension, acute hypoxia, leukocytosis, lactic acidosis, elevated liver function test secondary to acute UTI secondary to chronic indwelling Kingsley catheter complication, resulting in severe sepsis without shock but with multisystem organ dysfunction Severe sepsis with multisystem organ dysfunction secondary to acute UTI secondary to complications from chronic indwelling Kingsley catheter-continue with current IV antibiotic regiment, cultures are still pending at this time but patient is overall much improved Multisystem organ dysfunction secondary to above--see above Elevated liver function test with coagulopathy-repeat in a.m. Leukocytosis secondary to above-repeat in a.m. Thrombocytopenia-likely related to sepsis as outlined above, monitor daily Hypomagnesemia-check and repeat levels Acute elevation in creatinine acute kidney injury stage II-repeat in a.m., unable to obtain baseline, but if his baseline is normal this is at least 250% above baseline, be acute kidney injury stage II Hypoalbuminemia-supplement when patient able to take oral Hypercholesterolemia-will hold meds currently NIDDM-insulin sliding scale, will hold oral agents Some peripheral edema today so will saline lock GERD-IV Protonix Depression-continue with home medications BPH-continue with home medications, although may stop tamsulosin as he does have a chronic indwelling Kingsley Admission status: Patient with severe sepsis with multisystem organ dysfunction secondary to 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 Inpatient status Urinary Catheter Management Urinary Catheter Management Urethral: Cath placed during this visit: yes Urethral indwelling: Yes Reason for continuing: acute urinary retention Insertion date: 07/09/24 Insertion time: 14:38
[2024-07-11 05:54] LABS: Basophils Percent Auto 0.2 % (0.2-2.0); Eosinophils Percent Auto 0.1 % (0.9-7.0); Hematocrit 37.8 % (42.0-54.0); Hemoglobin 12.7 g/dL (14.0-18.0); Immature Granulocytes Abs Auto 0.22 10^3/uL (0.00-0.03); Immature Granulocytes Pct Auto 2.1 % (0.0-0.5); Lymphocytes Absolute Auto 2.2 10^3/uL (1.2-3.8); Lymphocytes Percent Auto 21.1 % (20.5-60.0); Mean Corpuscular HGB Conc 33.6 g/dL (29.9-35.2); Mean Corpuscular Hemoglobin 29.7 pg (25.9-34.0); Mean Corpuscular Volume 88.3 fL (80.0-94.0); Mean Platelet Volume 12.2 fL (9.5-13.5); Monocytes Absolute Auto 0.4 10^3/uL (0.3-0.8); Monocytes Percent Auto 4.3 % (1.7-12.0); Neutrophils Absolute Auto 7.4 10^3/uL (1.4-6.5); Neutrophils Percent Auto 72.2 % (43.0-75.0); Platelet Count 90 10^3/uL (150-450); Red Blood Count 4.28 10^6/uL (4.70-6.10); Red Cell Distribution Width 18.1 % (11.0-15.0); White Blood Count 10.3 10^3/uL (4.0-11.0)
[2024-07-11 06:11] LABS: Alanine Aminotransferase 8 U/L (16-63); Albumin Globulin Ratio 0.6; Albumin Level 2.1 g/dL (3.4-5.0); Alkaline Phosphatase 103 U/L (46-116); Anion Gap 15.3; Aspartate Amino Transferase 23 U/L (15-37); BUN Creatinine Ratio 31.6; Bilirubin Total 0.5 mg/dL (0.2-1.0); Calcium 7.9 mg/dL (8.5-10.1); Carbon Dioxide 23.8 mmol/L (21.0-32.0); Chloride 110 mmol/L (98-107); Estimated GFR (African America 42 (>=60 mL/min/1.73m^2); Estimated GFR (Non-African Ame 34 (>=60 mL/min/1.73m^2); Globulin 3.4 g/dL; Glucose 114 mg/dL (74-106); Potassium 3.1 mmol/L (3.5-5.1); Sodium 146 mmol/L (136-145); Total Protein 5.5 g/dL (6.4-8.2)
[2024-07-11 06:45] LABS: Magnesium 1.7 mg/dL (1.8-2.4)
--- NOTE | 2024-07-11 08:28 | SWNOTE1 ---
OSWALD did receive a message last night from August at [facility] and she will review referral this morning and let OSWALD know. OSWALD did muckleshoot back with [facility] and Denilson at [facility] is stating they do not think they have an opening for him.
[2024-07-11] MEDS: POTASSIUM CHLORIDE 40 MEQ in 0.9 % SODIUM CHLORIDE 250 ML 67.5 MEQ IV (08:51)
[2024-07-11] MEDS: TAMSULOSIN HCL 0.4 MG CAPSULE PO ×2 (08:52→21:16)
[2024-07-11] MEDS: NYSTATIN 15 GM POWDER 1 APPLIC TOPICAL ×2 (08:52→21:17)
[2024-07-11] MEDS: ASPIRIN 81 MG TAB.CHEW PO (08:52)
[2024-07-11] MEDS: SERTRALINE HCL 50 MG TABLET PO (08:52)
[2024-07-11] MEDS: PREGABALIN 100 MG CAPSULE 300 MG PO ×2 (08:52→21:16)
--- NOTE | 2024-07-11 08:59 | CM.NOTE ---
Rounds made with Dr. Horton. Dr. Horton reviews plan of care. No discharge today.
--- NOTE | 2024-07-11 10:09 | SWNOTE1 ---
OSWALD called and spoke to Melia at [facility] and she is going to send on the referral to be reviewed and will get back to OSWALD.
--- NOTE | 2024-07-11 10:17 | SWNOTE1 ---
OSWALD called and spoke to pt's to update her. OSWALD let her know that [facility] is reviewing referral. OSWALD did ask her IF [facility] is not able to accept does she want me to look in to [place] or [place]. OSWALD let her know that there is one more facility in [place] and there is 3 facilities in [place]. Concepcion did state she really wants him to go to a place in [place]. OSWALD let her know that the only other facility in [place] is [facility]. Nicolasa stated he will not go there. If [facility] is not able to accept, she is alright OSWALD reaching out to [facility]. SW to update once [facility] reaches back out. OSWALD reached out to Bouchra at [facility] to see if they have any openings just in case, SW waiting to hear back.
--- NOTE | 2024-07-11 10:18 | PT.DAILY ---
Physical Therapy Daily Note PT Daily Note/Assess Start: 07/11/24 10:10 Freq: Status: Active Protocol: Document 07/11/24 10:11 DEUCE (Rec: 07/11/24 10:18 DEUCE [id number]) Physical Therapy Daily Note/Assessment Time In/Time Out Time In 09:46 Time Out 10:06 Pain In Pain N/A Pain Out Pain N/A Subjective Subjective Pt sitting EOB with OT upon arrival. 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 Therapeutic Exercise Time Therapeutic Exercise 4 Minutes (minutes) Therapeutic Exercise 0 Units Therapeutic Exercise Treatment Therapeutic Exercise Pt performs bilat LAQ, marches (small range), AP, add Treatment squeezes and abd step outs 10x ea with ModA to maintain dynamic sitting balance due to R Lateral lean with movements. Therapeutic Activity Time Therapeutic Activity 2 Minutes (minutes) Therapeutic Activity 0 Units Therapeutic Activity Treatment Bed Mobility Ability Maximum Assist,2 Person Assist Therapeutic Activity Sit>supine MaxA of 2 and total assist of 2 to scoot pt Comments up in bed. Pt is repositioned in bed with side to side rolling requiring maxA. Pillows under legs and R side trunk. Call light is within reach and needs met. Neuromuscular Reeducation Neuromuscular 8 Reeducation Minutes (minutes) Neuromuscular 1 Reeducation Units Neuromuscular Pt sits EOB with bilat UE support and requires ModA- Reeducation MaxA to maintain upright sitting balance due to heavy R lateral lean. Pt able to weight shift and reach to left 10x with Cb for this dynamic activity. Forward flexion at trunk 5x with Cb. Sitting upright with deep breathing 1 min -ModA. Total Physical Therapy Time Total Therapy 14 Minutes Total Physical 1 Therapy Units Summary Daily Note Summary Slight improvement with trunk and head control. Needs constant cues for upright posture but the carry over is minimal. Would benefit from SNF to regain strength and balance to improve quality of life.
--- NOTE | 2024-07-11 10:30 | SWNOTE1 ---
SW sent PT note from today, labs, vitals, physician note, and nursing notes to August at [facility].
--- NOTE | 2024-07-11 10:37 | SWNOTE1 ---
SW spoke to Kayla at [facility]. She stated they can review referral and check on there bed status and let SW know. SW did express that pt's does really want SW to get him in at [facility], but if not there then [facility] is next choice. Kayla voiced understanding and they can review and will contact SW before they start anything. Referral sent to [facility] . Referral included face sheet, ED note, H&P, provider notes, case management report, nursing notes, diagnostic imaging, med list, and PT/OT notes.
[2024-07-11 11:38] LABS: Glucometer 98 mg/dL (74-106)
--- NOTE | 2024-07-11 12:14 | SWNOTE1 ---
OSWALD received a call from Gretchen at [facility] and she was asking if OSWALD sent the referral. OSWALD advised her that OSWALD spoke to Melia in admissions this morning around 10:00 and she was going to send the referral to be reviewed and would get back to SW within 2 hours. Gretchen stated she will follow up with Melia and get back to OSWALD.
--- NOTE | 2024-07-11 12:31 | SWNOTE1 ---
OSWALD received a call from August at [facility] and they are able to accept and will start precert. OSWALD advised August that SW will complete HENS and email the phone number the facility can call over the weekend if approved.
--- NOTE | 2024-07-11 13:08 | SWNOTE1 ---
SW completed HENS and provided August with phone number for weekend.
--- NOTE | 2024-07-11 13:14 | SWNOTE1 ---
SW took packet to the floor in case of approval over the weekend. Nurse is updated and is updated as well.
[2024-07-11] MEDS: LEVOFLOXACIN IN DEXTROSE 5 % 750 MG/150 ML PREMIX 100 MG IV (16:02)
--- NOTE | 2024-07-11 17:32 | NUTR.NU ---
PO intakes are variable depending on how pt feels at mealtime. Supplement orders in place. Encourage improved PO intakes; continue to follow PRN.
[2024-07-11] MEDS: ENOXAPARIN SODIUM 40 MG/0.4 ML SYRINGE SUBQ (21:16)
[2024-07-11] MEDS: ENSURE HP 237 ML LIQUID PO (21:17)
[2024-07-11] MEDS: PANTOPRAZOLE SODIUM 40 MG VIAL IV (21:17)
[2024-07-11 21:25] LABS: Glucometer 84 mg/dL (74-106)
[2024-07-12] VITALS (19 sets, daily range): BP systolic 98–119; BP diastolic 62–77; PULSE 90–102; TEMP 36.3–36.7; O2SAT 92–96
[2024-07-12] MEDS: PIPERACILLIN SODIUM/TAZOBACTAM 3.375 GM in 0.9 % SODIUM CHLORIDE 50 ML IV ×3 (03:25→23:44)
[2024-07-12] MEDS: IPRATROPIUM/ALBUTEROL SULFATE 3 ML AMPUL.NEB IH ×2 (05:03→11:06)
[2024-07-12] MEDS: LEVOTHYROXINE SODIUM 88 MCG TABLET PO (05:43)
[2024-07-12 06:15] LABS: Alanine Aminotransferase 8 U/L (16-63); Albumin Globulin Ratio 0.7; Alkaline Phosphatase 91 U/L (46-116); Anion Gap 14.5; Aspartate Amino Transferase 22 U/L (15-37); BUN Creatinine Ratio 27.8; Bilirubin Total 0.6 mg/dL (0.2-1.0); Carbon Dioxide 23.9 mmol/L (21.0-32.0); Chloride 112 mmol/L (98-107); Estimated GFR (African America 56 (>=60 mL/min/1.73m^2); Estimated GFR (Non-African Ame 46 (>=60 mL/min/1.73m^2); Glucose 100 mg/dL (74-106); Potassium 3.4 mmol/L (3.5-5.1); Sodium 147 mmol/L (136-145)
[2024-07-12 06:19] LABS: Basophils Percent Auto 0.2 % (0.2-2.0); Eosinophils Absolute Auto 0.1 10^3/uL (0.0-0.7); Eosinophils Percent Auto 1.7 % (0.9-7.0); Hematocrit 36.1 % (42.0-54.0); Hemoglobin 11.8 g/dL (14.0-18.0); Immature Granulocytes Abs Auto 0.15 10^3/uL (0.00-0.03); Immature Granulocytes Pct Auto 1.8 % (0.0-0.5); Lymphocytes Absolute Auto 2.8 10^3/uL (1.2-3.8); Lymphocytes Percent Auto 34.2 % (20.5-60.0); Mean Corpuscular HGB Conc 32.7 g/dL (29.9-35.2); Mean Corpuscular Hemoglobin 29.1 pg (25.9-34.0); Mean Corpuscular Volume 89.1 fL (80.0-94.0); Mean Platelet Volume 13.1 fL (9.5-13.5); Monocytes Absolute Auto 0.4 10^3/uL (0.3-0.8); Monocytes Percent Auto 4.7 % (1.7-12.0); Neutrophils Absolute Auto 4.7 10^3/uL (1.4-6.5); Neutrophils Percent Auto 57.4 % (43.0-75.0); Platelet Count 87 10^3/uL (150-450); Red Blood Count 4.05 10^6/uL (4.70-6.10); White Blood Count 8.1 10^3/uL (4.0-11.0)
[2024-07-12] MEDS: NYSTATIN 15 GM POWDER 1 APPLIC TOPICAL ×2 (08:45→23:50)
[2024-07-12] MEDS: TAMSULOSIN HCL 0.4 MG CAPSULE PO ×2 (08:45→23:51)
[2024-07-12] MEDS: SERTRALINE HCL 50 MG TABLET PO (08:45)
[2024-07-12] MEDS: PREGABALIN 100 MG CAPSULE 300 MG PO ×2 (08:45→23:51)
[2024-07-12] MEDS: ASPIRIN 81 MG TAB.CHEW PO (08:45)
--- NOTE | 2024-07-12 10:26 | PT.DAILY ---
Physical Therapy Daily Note PT Daily Note/Assess Start: 07/11/24 10:10 Freq: Status: Active Protocol: Document 07/12/24 09:45 [email or web address] (Rec: 07/12/24 10:26 [email or web address] [id number]) Physical Therapy Daily Note/Assessment Time In/Time Out Time In 09:46 Time Out 10:06 Subjective Subjective Patient reports wants to get up and walk, and will try very hard. Patient is confused on hospital vs. rehab, education provided on why patient needs to go to rehab facility and he voices understanding. Therapeutic Exercise Time Therapeutic Exercise 15 Minutes (minutes) Therapeutic Exercise 1 Units Therapeutic Exercise Treatment Therapeutic Exercise Supine exercises as follows to promote LE strength and Treatment core strength to improved ability with functional movement: -AP, QS, GS 10x each (10 sec hold with isometric to maximize benefit.) -Heel slides, hip abduction 2x5 -SLR 3x with AAROM -Upper trunk rotation with assist 5x to each side ( alternating) -Lower trunk rotation with assist 10x to each side ( alternating) -Modified isometric sit up with therapist assist 5x 10 sec hold -TA isometric 5x 10 sec hold Therapeutic Activity Time Therapeutic Activity 5 Minutes (minutes) Therapeutic Activity 0 Units Therapeutic Activity Treatment Therapeutic Activity Attempted to come EOB with max assist x1, unable to Comments complete with 1 assist this AM. Patient did put forth 100 percent effort with attempt, but was unable to complete safely with 1 assist. Total Physical Therapy Time Total Therapy 20 Minutes Total Physical 1 Therapy Units Summary Daily Note Summary Unable to come EOB safely with 1 assist this AM. Progressed with an extensive supine exercise program to work on core strength, B LE strength, and functional movement break downs for bed mobility. Patient fatigues quickly with exercise requiring short rest breaks after reps. Patient is motivated and works hard for PT today. Patient will benefit from skilled rehab at AL to build strength and become more independent with functional movement. At this time patient requires greater than 1 person to assist with bed mobility and transfers.
--- NOTE | 2024-07-12 11:32 | PM.PN ---
Progress Note: Subjective Subjective Interval history: Patient feels well today. Appetite improved and no nausea or emesis. Still mild confusion. Afebrile and WBC improved. Continues to have weakness and working with PT. Recommended to go to SNF for strengthening and information sent to insurance for precertification. Urine culture pending and remains on levaquin and zosyn. No chest pain or palpitations. No SOB or cough. Exam Constitutional Vital Signs, click to edit/add: Last Vital Signs Temp 98 F 07/12/24 07:27 Pulse 96 H 07/12/24 11:05 Resp 20 07/12/24 07:27 BP 98/62 07/12/24 07:27 Pulse Ox 96 07/12/24 11:05 O2 Del Method Room Air 07/12/24 11:05 O2 Flow Rate 1 07/11/24 04:50 Documenting provider has reviewed patient's vital signs: yes Common normals: no apparent distress and alert HENMT Common normals: normocephalic Eye Common normals: PERRL and EOMs intact bilaterally Respiratory Common normals: normal respiratory effort and clear to auscultation bilaterally Cardio Common normals: regular rate, regular rhythm, no gallops, no murmurs and no rub GI Common normals: Normal to inspection, nondistended, normoactive bowel sounds present and non-tender Extremity Common normals: no pedal edema Progress Note: Objective Labs Labs: Short CBC 07/12/24 Range/Units 05:33 WBC 8.1 (4.0-11.0) 10^3/uL Hgb 11.8 L (14.0-18.0) g/dL Hct 36.1 L (42.0-54.0) % Plt Count 87 L (150-450) 10^3/uL BMP 07/12/24 05:33 Sodium 147 H Potassium 3.4 L Chloride 112 H Carbon Dioxide 23.9 BUN 42.0 H Creatinine 1.51 H Glucose 100 Calcium 8.0 L Liver Function 07/12/24 Range/Units 05:33 Total Bilirubin 0.6 (0.2-1.0) mg/dL AST 22 (15-37) U/L ALT 8 L (16-63) U/L Alkaline Phosphatase 91 (46-116) U/L Albumin 2.0 L (3.4-5.0) g/dL Progress Note: A&P Assessment and Plan (1) UTI (urinary tract infection) due to urinary indwelling catheter: Qualifiers: Indwelling urinary catheter type: indwelling urethral catheter Encounter type: initial encounter Qualified Code(s): T83.511A - Infection and inflammatory reaction due to indwelling urethral catheter, initial encounter; N39.0 - Urinary tract infection, site not specified (2) Sepsis: Qualifiers: Sepsis type: sepsis due to unspecified organism Sepsis acute organ dysfunction status: without acute organ dysfunction Qualified Code(s): A41.9 - Sepsis, unspecified organism (3) Acute kidney injury: (4) Chronic indwelling Kingsley catheter: (5) Type 2 diabetes mellitus: Qualifiers: Diabetes mellitus [facility] insulin use: without buttermilk drier operator use Diabetes mellitus complication status: with hyperglycemia Qualified Code(s): E11.65 - Type 2 diabetes mellitus with hyperglycemia (6) CKD stage 3a, GFR 45-59 ml/min: Plan Patient improved with treatment. WBC improved and afebrile. Continue levaquin and zosyn while awaiting culture results. Renal function improved. Vitals stable. Continue PT for weakness and will need SNF upon discharge. Urinary Catheter Management Urinary Catheter Management Urethral: Cath placed during this visit: yes Urethral indwelling: Yes Reason for continuing: acute urinary retention Insertion date: 07/09/24 Insertion time: 14:38
[2024-07-12 11:35] LABS: Glucometer 99 mg/dL (74-106)
[2024-07-12 15:38] LABS: Glucometer 90 mg/dL (74-106)
[2024-07-12] MEDS: LEVOFLOXACIN IN DEXTROSE 5 % 750 MG/150 ML PREMIX 100 MG IV (15:55)
[2024-07-12 23:19] LABS: Glucometer 78 mg/dL (74-106)
[2024-07-12] MEDS: PROSTAT 15 GM PROTEIN/100 CAL 30 ML LIQUID PACKET PO (23:47)
[2024-07-12] MEDS: ENSURE HP 237 ML LIQUID PO (23:48)
[2024-07-12] MEDS: ENOXAPARIN SODIUM 40 MG/0.4 ML SYRINGE SUBQ (23:53)
[2024-07-12] MEDS: PANTOPRAZOLE SODIUM 40 MG VIAL IV (23:59)
[2024-07-13] VITALS (16 sets, daily range): BP systolic 116–134; BP diastolic 75–86; PULSE 80–96; TEMP 36.4–36.6; O2SAT 93–96
[2024-07-13] MEDS: PIPERACILLIN SODIUM/TAZOBACTAM 3.375 GM in 0.9 % SODIUM CHLORIDE 50 ML IV ×2 (04:55→11:38)
[2024-07-13] MEDS: LEVOTHYROXINE SODIUM 88 MCG TABLET PO (06:33)
[2024-07-13 07:13] LABS: Basophils Percent Auto 0.4 % (0.2-2.0); Eosinophils Absolute Auto 0.2 10^3/uL (0.0-0.7); Eosinophils Percent Auto 2.4 % (0.9-7.0); Hematocrit 36.4 % (42.0-54.0); Immature Granulocytes Abs Auto 0.16 10^3/uL (0.00-0.03); Immature Granulocytes Pct Auto 2.3 % (0.0-0.5); Lymphocytes Absolute Auto 2.8 10^3/uL (1.2-3.8); Lymphocytes Percent Auto 39.3 % (20.5-60.0); Mean Corpuscular Hemoglobin 29.4 pg (25.9-34.0); Mean Corpuscular Volume 89.2 fL (80.0-94.0); Mean Platelet Volume 12.9 fL (9.5-13.5); Monocytes Absolute Auto 0.3 10^3/uL (0.3-0.8); Monocytes Percent Auto 3.8 % (1.7-12.0); Neutrophils Absolute Auto 3.6 10^3/uL (1.4-6.5); Neutrophils Percent Auto 51.8 % (43.0-75.0); Platelet Count 91 10^3/uL (150-450); Red Blood Count 4.08 10^6/uL (4.70-6.10); Red Cell Distribution Width 18.2 % (11.0-15.0)
[2024-07-13 07:28] LABS: Alanine Aminotransferase <6 U/L (16-63); Albumin Globulin Ratio 0.6; Albumin Level 1.9 g/dL (3.4-5.0); Alkaline Phosphatase 89 U/L (46-116); Anion Gap 12.5; Aspartate Amino Transferase 22 U/L (15-37); Bilirubin Total 0.6 mg/dL (0.2-1.0); Calcium 7.9 mg/dL (8.5-10.1); Chloride 113 mmol/L (98-107); Estimated GFR (African America >60 (>=60 mL/min/1.73m^2); Estimated GFR (Non-African Ame 59 (>=60 mL/min/1.73m^2); Globulin 3.2 g/dL; Glucose 93 mg/dL (74-106); Potassium 3.5 mmol/L (3.5-5.1); Sodium 146 mmol/L (136-145); Total Protein 5.1 g/dL (6.4-8.2)
[2024-07-13] MEDS: NYSTATIN 15 GM POWDER 1 APPLIC TOPICAL ×2 (08:15→20:15)
[2024-07-13] MEDS: ASPIRIN 81 MG TAB.CHEW PO (08:15)
[2024-07-13] MEDS: SERTRALINE HCL 50 MG TABLET PO (08:15)
[2024-07-13] MEDS: PREGABALIN 100 MG CAPSULE 300 MG PO ×2 (08:15→20:16)
[2024-07-13] MEDS: TAMSULOSIN HCL 0.4 MG CAPSULE PO ×2 (08:15→20:16)
[2024-07-13 08:35] LABS: Internal Control Within Normal Limits; Occult Blood Positive
[2024-07-13] MEDS: ACETAMINOPHEN 500 MG TABLET 1000 MG PO ×2 (09:30→21:41)
[2024-07-13] MEDS: 0.9 % SODIUM CHLORIDE 250 ML 10 ML IV (11:42)
[2024-07-13 11:49] LABS: Glucometer 87 mg/dL (74-106)
[2024-07-13] MEDS: LEVOFLOXACIN IN DEXTROSE 5 % 750 MG/150 ML PREMIX 100 MG IV (15:12)
[2024-07-13 16:19] LABS: Glucometer 337 mg/dL (74-106)
--- NOTE | 2024-07-13 16:26 | P.PN_ITS ---
Progress Note: Subjective Subjective Interval history: Patient stable today. Appetite normal and no nausea or emesis. Still mild confusion. Afebrile and WBC continues to improve. Continues to have weakness and working with PT. Recommended to go to SNF for strengthening and information sent to insurance for precertification. Urine culture pending and remains on levaquin and zosyn. No chest pain or palpitations. No SOB or cough. Exam Constitutional Vital Signs, click to edit/add: Last Vital Signs Temp 97.9 F 07/13/24 13:18 Pulse 88 07/13/24 14:05 Resp 20 07/13/24 13:18 BP 116/84 07/13/24 13:18 Pulse Ox 93 L 07/13/24 13:18 O2 Del Method Room Air 07/13/24 13:18 O2 Flow Rate 1 07/11/24 04:50 Documenting provider has reviewed patient's vital signs: yes Common normals: no apparent distress and alert HENMT Common normals: normocephalic Eye Common normals: PERRL and EOMs intact bilaterally Respiratory Common normals: normal respiratory effort and clear to auscultation bilaterally Cardio Common normals: regular rate, regular rhythm, no gallops, no murmurs and no rub GI Common normals: Normal to inspection, nondistended, normoactive bowel sounds present and non-tender Extremity Common normals: no pedal edema Progress Note: Objective Labs Labs: Short CBC 07/13/24 Range/Units 06:16 WBC 7.0 (4.0-11.0) 10^3/uL Hgb 12.0 L (14.0-18.0) g/dL Hct 36.4 L (42.0-54.0) % Plt Count 91 L (150-450) 10^3/uL BMP 07/13/24 06:16 Sodium 146 H Potassium 3.5 Chloride 113 H Carbon Dioxide 24.0 BUN 28.0 H Creatinine 1.22 Glucose 93 Calcium 7.9 L Liver Function 07/13/24 Range/Units 06:16 Total Bilirubin 0.6 (0.2-1.0) mg/dL AST 22 (15-37) U/L ALT <6 L (16-63) U/L Alkaline Phosphatase 89 (46-116) U/L Albumin 1.9 L (3.4-5.0) g/dL Progress Note: A&P Assessment and Plan (1) UTI (urinary tract infection) due to urinary indwelling catheter: Qualifiers: Indwelling urinary catheter type: indwelling urethral catheter Encounter type: initial encounter Qualified Code(s): T83.511A - Infection and inflammatory reaction due to indwelling urethral catheter, initial encounter; N39.0 - Urinary tract infection, site not specified (2) Sepsis: Qualifiers: Sepsis acute organ dysfunction status: without acute organ dysfunction Sepsis type: sepsis due to unspecified organism Qualified Code(s): A41.9 - Sepsis, unspecified organism (3) Acute kidney injury: (4) Chronic indwelling Kingsley catheter: (5) Type 2 diabetes mellitus: Qualifiers: Diabetes mellitus fdc insulin use: without buttermaker helper use Diabetes mellitus complication status: with hyperglycemia Qualified Code(s): E11.65 - Type 2 diabetes mellitus with hyperglycemia (6) CKD stage 3a, GFR 45-59 ml/min: Plan Patient continues to improve. Afebrile and WBC improving. Culture pending and continue antibiotics. Continue PT for weakness. Awaiting insurance approval for SNF. Urinary Catheter Management Urinary Catheter Management Urethral: Cath placed during this visit: yes Urethral indwelling: Yes Reason for continuing: prolonged immobilization Insertion date: 07/09/24 Insertion time: 14:38
[2024-07-13 16:40] LABS: Glucometer 149 mg/dL (74-106)
[2024-07-13] MEDS: LINEZOLID IN DEXTROSE 5% 600 MG/300 ML PIGGYBACK 300 MG IV (20:10)
[2024-07-13] MEDS: PROSTAT 15 GM PROTEIN/100 CAL 30 ML LIQUID PACKET PO (20:15)
[2024-07-13] MEDS: ENSURE HP 237 ML LIQUID PO (20:15)
[2024-07-13 21:37] LABS: Glucometer 109 mg/dL (74-106)
[2024-07-13] MEDS: ENOXAPARIN SODIUM 40 MG/0.4 ML SYRINGE SUBQ (21:40)
[2024-07-13] MEDS: PANTOPRAZOLE SODIUM 40 MG VIAL IV (21:40)
[2024-07-14] VITALS (19 sets, daily range): BP systolic 94–119; BP diastolic 64–83; PULSE 76–98; TEMP 36.5–36.6; O2SAT 93–95
[2024-07-14 05:40] LABS: Basophils Percent Auto 0.3 % (0.2-2.0); Eosinophils Absolute Auto 0.2 10^3/uL (0.0-0.7); Eosinophils Percent Auto 1.7 % (0.9-7.0); Hematocrit 37.4 % (42.0-54.0); Hemoglobin 12.1 g/dL (14.0-18.0); Immature Granulocytes Abs Auto 0.22 10^3/uL (0.00-0.03); Immature Granulocytes Pct Auto 2.5 % (0.0-0.5); Lymphocytes Absolute Auto 3.5 10^3/uL (1.2-3.8); Lymphocytes Percent Auto 40.8 % (20.5-60.0); Mean Corpuscular HGB Conc 32.4 g/dL (29.9-35.2); Mean Corpuscular Hemoglobin 28.8 pg (25.9-34.0); Mean Platelet Volume 13.1 fL (9.5-13.5); Monocytes Absolute Auto 0.3 10^3/uL (0.3-0.8); Monocytes Percent Auto 3.4 % (1.7-12.0); Neutrophils Absolute Auto 4.4 10^3/uL (1.4-6.5); Neutrophils Percent Auto 51.3 % (43.0-75.0); Platelet Count 83 10^3/uL (150-450); Red Cell Distribution Width 18.1 % (11.0-15.0); White Blood Count 8.7 10^3/uL (4.0-11.0)
[2024-07-14 05:58] LABS: Alanine Aminotransferase 8 U/L (16-63); Albumin Globulin Ratio 0.6; Albumin Level 1.9 g/dL (3.4-5.0); Alkaline Phosphatase 90 U/L (46-116); Anion Gap 11.8; Aspartate Amino Transferase 24 U/L (15-37); BUN Creatinine Ratio 19.1; Bilirubin Total 0.5 mg/dL (0.2-1.0); Calcium 7.7 mg/dL (8.5-10.1); Carbon Dioxide 25.4 mmol/L (21.0-32.0); Chloride 109 mmol/L (98-107); Estimated GFR (African America >60 (>=60 mL/min/1.73m^2); Estimated GFR (Non-African Ame >60 (>=60 mL/min/1.73m^2); Globulin 3.2 g/dL; Glucose 85 mg/dL (74-106); Potassium 3.2 mmol/L (3.5-5.1); Sodium 143 mmol/L (136-145); Total Protein 5.1 g/dL (6.4-8.2)
[2024-07-14] MEDS: LEVOTHYROXINE SODIUM 88 MCG TABLET PO (06:18)
[2024-07-14] MEDS: SERTRALINE HCL 50 MG TABLET PO (08:37)
[2024-07-14] MEDS: PROSTAT 15 GM PROTEIN/100 CAL 30 ML LIQUID PACKET PO (08:37)
[2024-07-14] MEDS: PREGABALIN 100 MG CAPSULE 300 MG PO ×2 (08:37→20:31)
[2024-07-14] MEDS: TAMSULOSIN HCL 0.4 MG CAPSULE PO ×2 (08:37→20:31)
[2024-07-14] MEDS: ASPIRIN 81 MG TAB.CHEW PO (08:37)
[2024-07-14] MEDS: NYSTATIN 15 GM POWDER 1 APPLIC TOPICAL ×2 (08:38→20:33)
[2024-07-14] MEDS: LINEZOLID IN DEXTROSE 5% 600 MG/300 ML PIGGYBACK 300 MG IV ×2 (08:39→20:55)
--- NOTE | 2024-07-14 10:52 | PM.PN ---
Progress Note: Subjective Subjective Interval history: Patient feels well today. Appetite normal and no nausea or emesis. Still mild confusion. Afebrile and WBC normal. Continues to have weakness and working with PT. Recommended to go to SNF for strengthening and information sent to insurance for precertification. Urine culture showed MRSA. Stopped levaquin and zosyn and changed to zyvox. No chest pain or palpitations. No SOB or cough. Exam Constitutional Vital Signs, click to edit/add: Last Vital Signs Temp 97.7 F 07/14/24 07:54 Pulse 91 H 07/14/24 10:00 Resp 16 07/14/24 07:54 BP 94/68 07/14/24 07:54 Pulse Ox 94 L 07/14/24 07:54 O2 Del Method Room Air 07/14/24 07:54 O2 Flow Rate 1 07/11/24 04:50 Documenting provider has reviewed patient's vital signs: yes Common normals: no apparent distress and alert HENMT Common normals: normocephalic Eye Common normals: PERRL and EOMs intact bilaterally Respiratory Common normals: normal respiratory effort and clear to auscultation bilaterally Cardio Common normals: regular rate, regular rhythm, no gallops, no murmurs and no rub GI Common normals: Normal to inspection, nondistended, normoactive bowel sounds present and non-tender Extremity Common normals: no pedal edema Progress Note: Objective Labs Labs: Short CBC 07/14/24 Range/Units 05:23 WBC 8.7 (4.0-11.0) 10^3/uL Hgb 12.1 L (14.0-18.0) g/dL Hct 37.4 L (42.0-54.0) % Plt Count 83 L (150-450) 10^3/uL BMP 07/14/24 05:23 Sodium 143 Potassium 3.2 L Chloride 109 H Carbon Dioxide 25.4 BUN 22.0 H Creatinine 1.15 Glucose 85 Calcium 7.7 L Liver Function 07/14/24 Range/Units 05:23 Total Bilirubin 0.5 (0.2-1.0) mg/dL AST 24 (15-37) U/L ALT 8 L (16-63) U/L Alkaline Phosphatase 90 (46-116) U/L Albumin 1.9 L (3.4-5.0) g/dL Progress Note: A&P Assessment and Plan (1) UTI (urinary tract infection) due to urinary indwelling catheter: Qualifiers: Indwelling urinary catheter type: indwelling urethral catheter Encounter type: initial encounter Qualified Code(s): T83.511A - Infection and inflammatory reaction due to indwelling urethral catheter, initial encounter; N39.0 - Urinary tract infection, site not specified (2) Sepsis: Qualifiers: Sepsis acute organ dysfunction status: without acute organ dysfunction Sepsis type: sepsis due to unspecified organism Qualified Code(s): A41.9 - Sepsis, unspecified organism (3) Acute kidney injury: (4) Chronic indwelling Kingsley catheter: (5) Type 2 diabetes mellitus: Qualifiers: Diabetes mellitus long term care phlebotomist insulin use: without fci use Diabetes mellitus complication status: with hyperglycemia Qualified Code(s): E11.65 - Type 2 diabetes mellitus with hyperglycemia (6) CKD stage 3a, GFR 45-59 ml/min: Plan Patient stable. Urine culture showed UTI due to MRSA and changed to Zyvox. Continued weakness and continue PT. Waiting for insurance approval for SNF. Urinary Catheter Management Urinary Catheter Management Urethral: Cath placed during this visit: yes Urethral indwelling: Yes Reason for continuing: urinary obstruction Insertion date: 07/09/24 Insertion time: 14:38
--- NOTE | 2024-07-14 11:18 | CM.NOTE ---
Addendum entered by Amy Bear 07/14/24 11:34: Discussed also final culture results from urine and antibiotics that was changed on 07/13. Original Note: Rounds made with Dr. Watts, pt will discharge to [facility] when medically stable for discharge.
[2024-07-14 11:26] LABS: Glucometer 92 mg/dL (74-106)
--- NOTE | 2024-07-14 11:31 | CM.NOTE ---
2nd Important Message From Medicare discussed with pt, pt denies any questions or concerns.
--- NOTE | 2024-07-14 11:38 | SWNOTE1 ---
OSWALD faxed over physician notes from today and the weekend, PT note from Sunday and today, labs, vitals, nursing notes, and med list from today to August at [facility].
--- NOTE | 2024-07-14 12:38 | SWNOTE1 ---
OSWALD received an email from August at [facility]. She stated that she found it that pt has not covered skilled days left. OSWALD asked if they could not see that prior to referral being sent. She stated no, she had to call [facility] and wait for there call back and she just spoke with them. OSWALD then asked how he would get those days back? She stated a 3 month break. OSWALD then asked if she had terminal manager beds available.? She stated yes for $352.00 per day. OSWALD called , no answer and could not leave message.
--- NOTE | 2024-07-14 13:31 | SWNOTE1 ---
OSWALD called and spoke to to let her know what [facility] has said and having no covered days left. SW let know that SW has to call August at [facility] and confirm all of this. SW did ask if he had been anywhere in past? She stated no only the [facility]. [facility] did confirm he was there for 39 days. SW did ask pt's if pt's insurance does not cover skilled, will she pay out of pocket for geriatric aide? SW explained it would be $352 per day and 30 days up front. SW then explained that she could apply for Medicaid and asked about her finances and if they had money saved up? Pt's laughed over the phone and stated she will not use her money for that. She stated she won/or had that money handed down to her and will not use it for that. She stated she will take him home and do home health. SW did explain that HH only comes in 2-3 times a week. She voiced understanding and is familiar with home health. SW did also let pt's know that pt has not been up and walking and has needed assistance to sit up. She voiced understanding. SW to call August. SW called August at [facility]. She stated the precert is still pending. She explained that he used his initial 21 days and now in to co-pay days and he would owe 30 days up front, 209.50 per day. She stated this is because he does not have secondary. OSWALD to explain this to pt's .
--- NOTE | 2024-07-14 15:23 | SWNOTE1 ---
OSWALD spoke with pt in regards to discharge planning. OSWALD advised pt about [facility] and the possibility of owing up to $3,000. OSWALD explained to him that he is in his co-pay days. SW also let him know there is a chance his insurance will deny or they may still approve him to go, but unsure of how long. OSWALD advised the choice are sticking with precert to SNF or home with home health. SW let him know that his wants him to decide. He would like to try to get to [place] to get more therapy. OSWALD called and let her know. SW let Melia know. OSWALD also sent Melia the OT note from today.
[2024-07-14 16:20] LABS: Glucometer 72 mg/dL (74-106)
[2024-07-14 20:44] LABS: Glucometer 103 mg/dL (74-106)
[2024-07-14] MEDS: ENOXAPARIN SODIUM 40 MG/0.4 ML SYRINGE SUBQ (21:01)
[2024-07-14] MEDS: PANTOPRAZOLE SODIUM 40 MG VIAL IV (21:45)
[2024-07-15] VITALS (10 sets, daily range): BP systolic 119–124; BP diastolic 78–80; PULSE 74–91; TEMP 36.3–36.5; O2SAT 93–98
[2024-07-15] MEDS: LEVOTHYROXINE SODIUM 88 MCG TABLET PO (05:52)
[2024-07-15 06:00] LABS: Basophils Percent Auto 0.3 % (0.2-2.0); Eosinophils Absolute Auto 0.2 10^3/uL (0.0-0.7); Eosinophils Percent Auto 1.5 % (0.9-7.0); Hematocrit 40.8 % (42.0-54.0); Hemoglobin 13.2 g/dL (14.0-18.0); Immature Granulocytes Abs Auto 0.23 10^3/uL (0.00-0.03); Immature Granulocytes Pct Auto 2.3 % (0.0-0.5); Lymphocytes Absolute Auto 3.2 10^3/uL (1.2-3.8); Lymphocytes Percent Auto 32.6 % (20.5-60.0); Mean Corpuscular HGB Conc 32.4 g/dL (29.9-35.2); Mean Corpuscular Volume 89.7 fL (80.0-94.0); Monocytes Absolute Auto 0.4 10^3/uL (0.3-0.8); Monocytes Percent Auto 3.6 % (1.7-12.0); Neutrophils Absolute Auto 5.9 10^3/uL (1.4-6.5); Neutrophils Percent Auto 59.7 % (43.0-75.0); Platelet Count 79 10^3/uL (150-450); Red Blood Count 4.55 10^6/uL (4.70-6.10); Red Cell Distribution Width 18.2 % (11.0-15.0); White Blood Count 9.8 10^3/uL (4.0-11.0)
[2024-07-15 06:16] LABS: Alanine Aminotransferase 10 U/L (16-63); Albumin Globulin Ratio 0.6; Alkaline Phosphatase 103 U/L (46-116); Anion Gap 9.9; Aspartate Amino Transferase 24 U/L (15-37); BUN Creatinine Ratio 15.6; Bilirubin Total 0.6 mg/dL (0.2-1.0); Calcium 7.8 mg/dL (8.5-10.1); Carbon Dioxide 26.2 mmol/L (21.0-32.0); Chloride 108 mmol/L (98-107); Estimated GFR (African America >60 (>=60 mL/min/1.73m^2); Estimated GFR (Non-African Ame >60 (>=60 mL/min/1.73m^2); Globulin 3.4 g/dL; Glucose 79 mg/dL (74-106); Potassium 3.1 mmol/L (3.5-5.1); Sodium 141 mmol/L (136-145); Total Protein 5.4 g/dL (6.4-8.2)
[2024-07-15] MEDS: LINEZOLID 600 MG TABLET PO ×2 (09:00→21:37)
[2024-07-15] MEDS: ASPIRIN 81 MG TAB.CHEW PO (09:00)
[2024-07-15] MEDS: SERTRALINE HCL 50 MG TABLET PO (09:00)
[2024-07-15] MEDS: POTASSIUM CHLORIDE 10 MEQ ER TABLET 40 MEQ PO (09:00)
[2024-07-15] MEDS: PREGABALIN 100 MG CAPSULE 300 MG PO ×2 (09:00→21:37)
[2024-07-15] MEDS: TAMSULOSIN HCL 0.4 MG CAPSULE PO ×2 (09:00→21:37)
[2024-07-15] MEDS: NYSTATIN 15 GM POWDER 1 APPLIC TOPICAL ×2 (09:01→21:38)
[2024-07-15] MEDS: PROSTAT 15 GM PROTEIN/100 CAL 30 ML LIQUID PACKET PO (09:01)
--- NOTE | 2024-07-15 10:50 | CM.NOTE ---
Rounds made with Dr. Rios, pt will discharge to [facility] for skilled therapy at discharge.
--- NOTE | 2024-07-15 11:52 | PT.DAILY ---
Physical Therapy Daily Note PT Daily Note/Assess Start: 07/11/24 10:10 Freq: Status: Active Protocol: Document 07/15/24 09:15 GAURAV (Rec: 07/15/24 11:51 GAURAV [id number]) Physical Therapy Daily Note/Assessment Time In/Time Out Time In 09:15 Time Out 09:25 Subjective Subjective Patient is agreeable to therapy. reports feeling good today. Therapeutic Exercise Time Therapeutic Exercise 10 Minutes (minutes) Therapeutic Exercise 1 Units Therapeutic Exercise Treatment Therapeutic Exercise Supine LE and core exercises with isometrics, AAROM, Treatment and AROM to build LE strength thus improving ability to transfer and complete bed mobility. Total Physical Therapy Time Total Therapy 10 Minutes Total Physical 1 Therapy Units Summary Daily Note Summary 1st session of RX focused on strengthening with bed level exercises. At this time needs 2 assist to complete bed mobs and transfers so will come back to finish PT session when some else available to assist.
--- NOTE | 2024-07-15 11:57 | PT.DAILY ---
Physical Therapy Daily Note PT Daily Note/Assess Start: 07/11/24 10:10 Freq: Status: Active Protocol: Document 07/15/24 11:25 [email or web address] (Rec: 07/15/24 11:57 [email or web address] [id number]) Physical Therapy Daily Note/Assessment Time In/Time Out Time In 11:25 Time Out 11:35 Subjective Subjective Patient agrees to sit up to EOB. Continues to deny complaints. Therapeutic Activity Time Therapeutic Activity 10 Minutes (minutes) Therapeutic Activity 0 Units Therapeutic Activity Treatment Bed Mobility Ability Maximum Assist,2 Person Assist Chair Transfer Non-ambulatory Ability Therapeutic Activity Supine to sit max assist x 2. Once EOB patient requires Comments heavy tactile and verbal cuing to bring COG over YAQUELIN in sitting to maintain unsupported sitting. Once into position patient is able to hold EOB sitting unsupported with CGA/SBA for 2 min before fatigue settles in requiring min to mod assist to hold. (a total of 5 min of EOB sitting was completed0 Sit to supine was max assistx2, with max assist x2 to position once supine. Mod assist x1 to roll to L today. Total Physical Therapy Time Total Therapy 10 Minutes Total Physical 0 Therapy Units Summary Daily Note Summary Patient was able to get to EOB sitting with max assist x2 today. Once in position was able to hold unsupported sitting for 2 min before again requiring assistance to maintain due to core fatigue. Patient will benefit from skilled PT at DC to improved strength and allow for improved bed mobility and safe transfers.
[2024-07-15 12:08] LABS: Glucometer 76 mg/dL (74-106)
--- NOTE | 2024-07-15 12:08 | P.IMPN_ITS ---
Progress Note: A&P Assessment and Plan (1) Sepsis: Assessment and Plan: Resolved. Secondary to MRSA UTI. Renal function is now normal. No need for IV fluids. Stable hemodynamics now. Qualifiers: Sepsis acute organ dysfunction status: with acute organ dysfunction Sepsis type: methicillin resistant Staphylococcus aureus Severe sepsis acute organ dysfunction type: acute renal failure Acute renal failure type: unspecified Severe sepsis shock status: without septic shock Qualified Code(s): A41.02 - Sepsis due to Methicillin resistant Staphylococcus aureus; R65.20 - Severe sepsis without septic shock; N17.9 - Acute kidney failure, unspecified (2) UTI (urinary tract infection) due to urinary indwelling catheter: Assessment and Plan: Secondary to chronic indwelling catheter and MRSA. Patient was initially on Zosyn and Levaquin. Switched to IV Zyvox on 07/13/24 Changed to PO Zyvox 07/15/24, will need total 7 days of Zyvox for UTI. Qualifiers: Indwelling urinary catheter type: indwelling urethral catheter Encounter type: initial encounter Qualified Code(s): T83.511A - Infection and inflammatory reaction due to indwelling urethral catheter, initial encounter; N39.0 - Urinary tract infection, site not specified (3) Acute kidney injury: Assessment and Plan: Renal function normal now. Cr upon presentation was 2.7 (4) Chronic indwelling Kingsley catheter: Assessment and Plan: C/w routine catheter care. (5) Type 2 diabetes mellitus: Assessment and Plan: Sliding scale insulin while inpatient Qualifiers: Diabetes mellitus correction insulin use: without correction use Diabetes mellitus complication status: with hyperglycemia Qualified Code(s): E11.65 - Type 2 diabetes mellitus with hyperglycemia (6) Hyperlipidemia: Assessment and Plan: Continue with Lipitor Qualifiers: Hyperlipidemia type: unspecified Qualified Code(s): E78.5 - Hyperlipidemia, unspecified (7) Hypothyroidism: Assessment and Plan: Continue with levothyroxine Qualifiers: Hypothyroidism type: unspecified Qualified Code(s): E03.9 - Hypothyroidism, unspecified Internal Medicine - PN: Subj Subjective Interval history: Patient seen and examined. Doing well. No overnight events. No active complaints. Feels overall weak and tired because of physical deconditioning. Exam Constitutional Vital Signs, click to edit/add: Last Vital Signs Temp 97.7 F 07/15/24 05:10 Pulse 85 07/15/24 12:00 Resp 16 07/15/24 05:10 BP 124/78 07/15/24 05:10 Pulse Ox 95 07/15/24 05:10 O2 Del Method Room Air 07/15/24 05:10 O2 Flow Rate 1 07/11/24 04:50 Documenting provider has reviewed patient's vital signs: yes Common normals: no apparent distress and alert Respiratory Common normals: normal respiratory effort and clear to auscultation bilaterally Cardio Common normals: regular rate, regular rhythm, no gallops, no murmurs and no rub Extremity Common normals: no pedal edema Internal Medicine - PN: Obj Da Labs Labs: Laboratory Results - last 24 hr 07/14/24 07/14/24 07/15/24 16:12 20:41 05:46 WBC 9.8 RBC 4.55 L Hgb 13.2 L Hct 40.8 L MCV 89.7 MCH 29.0 MCHC 32.4 RDW 18.2 H Plt Count 79 L Neut % (Auto) 59.7 Lymph % (Auto) 32.6 [place] % (Auto) 3.6 Eos % (Auto) 1.5 Baso % (Auto) 0.3 Neut # (Auto) 5.9 Lymph # (Auto) 3.2 [place] # (Auto) 0.4 Eos # (Auto) 0.2 Baso # (Auto) 0.0 Abs Immat Gran (auto) 0.23 H Imm/Tot Granulo (auto) 2.3 H Sodium 141 Potassium 3.1 L Chloride 108 H Carbon Dioxide 26.2 Anion Gap 9.9 BUN 17.0 Creatinine 1.09 Est GFR ( Amer) >60 Est GFR (Non-Af Amer) >60 BUN/Creatinine Ratio 15.6 Glucose 79 Calcium 7.8 L Total Bilirubin 0.6 AST 24 ALT 10 L Alkaline Phosphatase 103 Total Protein 5.4 L Albumin 2.0 L Globulin 3.4 Albumin/Globulin Ratio 0.6 POC Glucose 72 L 103 Urinary Catheter Management Urinary Catheter Management Urethral: Cath placed during this visit: yes Urethral indwelling: Yes Reason for continuing: urinary obstruction Insertion date: 07/09/24 Insertion time: 14:38
--- NOTE | 2024-07-15 12:18 | SWNOTE1 ---
SW sent PT/OT notes from today as well as labs and vitals to August at [facility].
--- NOTE | 2024-07-15 13:52 | SWNOTE1 ---
OSWALD called and spoke with Melia at [facility] and she stated she left a message for the case maker at [facility] and she has also submitted the updates to insurance that were sent over today. She will call OSWALD once she hears back.
[2024-07-15 17:03] LABS: Glucometer 74 mg/dL (74-106)
[2024-07-15 20:29] LABS: Glucometer 99 mg/dL (74-106)
[2024-07-15] MEDS: OMEPRAZOLE 40 MG CAPSULE.DR PO (21:37)
[2024-07-15] MEDS: ENOXAPARIN SODIUM 40 MG/0.4 ML SYRINGE SUBQ (21:37)
[2024-07-16 04:25] VITALS: BP 116/80; PULSE 83; TEMP 36.3; O2SAT 93
[2024-07-16] MEDS: LEVOTHYROXINE SODIUM 88 MCG TABLET PO (05:58)
[2024-07-16 07:07] LABS: Glucometer 95 mg/dL (74-106)
[2024-07-16] MEDS: PREGABALIN 100 MG CAPSULE 300 MG PO (08:16)
[2024-07-16] MEDS: SERTRALINE HCL 50 MG TABLET PO (08:17)
[2024-07-16] MEDS: TAMSULOSIN HCL 0.4 MG CAPSULE PO (08:17)
[2024-07-16] MEDS: LINEZOLID 600 MG TABLET PO (08:17)
[2024-07-16] MEDS: ASPIRIN 81 MG TAB.CHEW PO (08:17)
[2024-07-16] MEDS: NYSTATIN 15 GM POWDER 1 APPLIC TOPICAL (08:17)
--- NOTE | 2024-07-16 10:12 | P.IMPN_ITS ---
Progress Note: A&P Assessment and Plan (1) Sepsis: Assessment and Plan: Resolved. Secondary to MRSA UTI. Qualifiers: Acute renal failure type: unspecified Sepsis acute organ dysfunction status: with acute organ dysfunction Sepsis type: methicillin resistant Staphylococcus aureus Severe sepsis acute organ dysfunction type: acute renal failure Severe sepsis shock status: without septic shock Qualified Code(s): A41.02 - Sepsis due to Methicillin resistant Staphylococcus aureus; R65.20 - Severe sepsis without septic shock; N17.9 - Acute kidney failure, unspecified (2) UTI (urinary tract infection) due to urinary indwelling catheter: Assessment and Plan: Secondary to chronic indwelling catheter and MRSA. Patient was initially empirically treated with Zosyn and Levaquin. Switched to IV Zyvox on 07/13/24 based on urine cultures. Patient switched to p.o. Zyvox on 07/15/2024. Qualifiers: Indwelling urinary catheter type: indwelling urethral catheter Encounter type: initial encounter Qualified Code(s): T83.511A - Infection and inflammatory reaction due to indwelling urethral catheter, initial encounter; N39.0 - Urinary tract infection, site not specified (3) Acute kidney injury: Assessment and Plan: Renal function normal now. Cr upon presentation was 2.7 (4) Chronic indwelling Kingsley catheter: Assessment and Plan: C/w routine catheter care. (5) Type 2 diabetes mellitus: Assessment and Plan: Sliding scale insulin while inpatient Qualifiers: Diabetes mellitus senior living insulin use: without long chain quiller tender use Diabetes mellitus complication status: with hyperglycemia Qualified Code(s): E11.65 - Type 2 diabetes mellitus with hyperglycemia (6) Hyperlipidemia: Assessment and Plan: Continue with Lipitor Qualifiers: Hyperlipidemia type: unspecified Qualified Code(s): E78.5 - Hyperlipidemia, unspecified (7) Hypothyroidism: Assessment and Plan: Continue with levothyroxine Qualifiers: Hypothyroidism type: unspecified Qualified Code(s): E03.9 - Hypothyroidism, unspecified Internal Medicine - PN: Subj Subjective Interval history: Patient seen and examined. No complaints. No overnight events. Exam Constitutional Vital Signs, click to edit/add: Last Vital Signs Temp 97.3 F L 07/16/24 04:25 Pulse 83 07/16/24 04:25 Resp 18 07/16/24 04:25 BP 116/80 07/16/24 04:25 Pulse Ox 93 L 07/16/24 04:25 O2 Del Method Room Air 07/16/24 04:25 O2 Flow Rate 1 07/11/24 04:50 Documenting provider has reviewed patient's vital signs: yes Common normals: no apparent distress and alert Respiratory Common normals: normal respiratory effort and clear to auscultation bilaterally Cardio Common normals: regular rate, regular rhythm, no gallops, no murmurs and no rub Extremity Common normals: no pedal edema Internal Medicine - PN: Obj Da Labs Labs: Laboratory Results - last 24 hr 07/15/24 07/15/24 07/15/24 12:07 17:02 20:27 POC Glucose 76 74 99 07/16/24 07:06 POC Glucose 95 Urinary Catheter Management Urinary Catheter Management Urethral: Cath placed during this visit: yes Urethral indwelling: Yes Reason for continuing: urinary obstruction Insertion date: 07/09/24 Insertion time: 14:38
--- NOTE | 2024-07-16 10:45 | CM.NOTE ---
Rounds made with Dr. Rios. Plan [facility] to [facility] once precertification with insurance is obtained.
--- NOTE | 2024-07-16 10:56 | SWNOTE1 ---
SW attempted to call pt's insurance to check on the precert for [facility], they were not able to provide SW with anything besides that it was still in the process. SW to try again this afternoon. OSWALD emailed and called August at [facility] to see if she has heard from the insurance, waiting to hear back.
--- NOTE | 2024-07-16 11:38 | SWNOTE1 ---
OSWALD called pt's insurance again and this person was able to let OSWALD know that pt is approved for SNF from 07/15-07/21 and provided the auth number. OSWALD sent August an email. She responded and stated she will check the portal and let OSWALD know if they have the same information.
--- NOTE | 2024-07-16 11:50 | SWNOTE1 ---
OSWALD received message from August at [facility] and she did get the approval as well. OSWALD notified nurse and Dr. Rios. Pt will be discharged today.
--- NOTE | 2024-07-16 11:55 | P.DS_ITS ---
DS: Providers Provider Date of admission: 07/09/24 17:11 Primary care physician: DARIUSZ PROCTOR DO Admitting clinician: Elmer Horton Attending physician on admission: Elmer Horton Consults: 07/09/24 17:45 Occupational Therapy Eval and Treat Routine Reason for consultation: Only if needed for Rehab Has provider been notified: No Physical Therapy Eval and Treat Routine Reason for consultation: Eval and Treat Has provider been notified: No Attending physician on discharge: Shaikh Blanca Discharging clinician: Shaikh Blanca Anticipated date of discharge: 07/16/24 DS: Diagnosis Discharge Diagnosis (1) Sepsis: Qualifiers: Acute renal failure type: unspecified Sepsis acute organ dysfunction status: with acute organ dysfunction Sepsis type: methicillin resistant Staphylococcus aureus Severe sepsis acute organ dysfunction type: acute renal failure Severe sepsis shock status: without septic shock Qualified Code(s): A41.02 - Sepsis due to Methicillin resistant Staphylococcus aureus; R65.20 - Severe sepsis without septic shock; N17.9 - Acute kidney failure, unspecified (2) UTI (urinary tract infection) due to urinary indwelling catheter: Qualifiers: Indwelling urinary catheter type: indwelling urethral catheter Encounter type: initial encounter Qualified Code(s): T83.511A - Infection and inflammatory reaction due to indwelling urethral catheter, initial encounter; N39.0 - Urinary tract infection, site not specified (3) Acute kidney injury: (4) Chronic indwelling Kingsley catheter: (5) Type 2 diabetes mellitus: Qualifiers: Diabetes mellitus skilled nursing insulin use: without parts counterman use Diabetes mellitus complication status: with hyperglycemia Qualified Code(s): E11.65 - Type 2 diabetes mellitus with hyperglycemia (6) Hyperlipidemia: Qualifiers: Hyperlipidemia type: unspecified Qualified Code(s): E78.5 - Hyperlipidemia, unspecified (7) Hypothyroidism: Qualifiers: Hypothyroidism type: unspecified Qualified Code(s): E03.9 - Hypothyroidism, unspecified DS: Summary Hospital Course Hospital Course: 73 y o presented with generalized weakness, increasing confusion and was found to have sepsis sec to UTI, EDILIA and metabolic encephalopathy. Patient was treated with IV zosyn/Levaquin initially and IVF for EDILIA. His urine cx came positive for MRSA. He was then switched to Zyvox. Patients renal function improved and returned to its baseline. Patient was also eval by PT/OT. He was recommended to go to SNF. His precert was started and he is approved to go today. Medically stable for discharge. F/u with PCP in one week For further details, please refer to my progress note today Status at Discharge Functional status at discharge: uses cane/walker Overall status at discharge: patient is progressing back to baseline Time Spent with Patient Time attestation: Total time spent providing and/or coordinating discharge services: Time spent: greater than 30 minutes Exam Constitutional Vital Signs, click to edit/add: Last Vital Signs Temp 97.3 F L 07/16/24 04:25 Pulse 83 07/16/24 04:25 Resp 18 07/16/24 04:25 BP 116/80 07/16/24 04:25 Pulse Ox 93 L 07/16/24 04:25 O2 Del Method Room Air 07/16/24 04:25 O2 Flow Rate 1 07/11/24 04:50 DS: Data Data Completed and Pending Labs on day of discharge: Labs from last 24 hours 07/16/24 07/15/24 07/15/24 07:06 20:27 17:02 POC Glucose 95 99 74 07/15/24 12:07 POC Glucose 76 Discharge Plan Discharge Disposition: [facility] Condition: Serious Discharge Medications: New linezolid 600 mg tablet 600 mg PO BID 10 Days Qty: 20 0RF Continued atorvastatin 40 mg tablet 40 mg PO DAILY levothyroxine 88 mcg tablet 88 mcg PO DAILY tamsulosin 0.4 mg capsule 0.4 mg PO BID meclizine 25 mg tablet 25 mg PO BID PRN (Reason: dizziness) pantoprazole 40 mg tablet,delayed release (DR/EC) 40 mg PO DAILY metformin 1,000 mg tablet 1,000 mg PO BID allopurinol 300 mg tablet 300 mg PO DAILY nortriptyline 50 mg capsule 50 mg PO .QHS pregabalin 300 mg capsule 300 mg PO BID sertraline 50 mg tablet 50 mg PO DAILY docusate sodium [Colace] 100 mg capsule 100 mg PO DAILY aspirin 81 mg capsule 81 mg PO DAILY acetaminophen 500 mg capsule 1,000 mg PO Q6H PRN (Reason: pain) albuterol sulfate 90 mcg/actuation aerosol powdr breath activated 2 inh inhalation Q6H polyethylene glycol 3350 [Miralax] 17 gram/dose powder 17 g PO DAILY nystatin 100,000 unit/gram powder 1 applic topical BID tramadol 50 mg tablet 50 mg PO BID 5 Days Qty: 10 0RF Print Language: Arabic Forms: Portal Instructions Follow Up Appointments: f/u with PCP in one week
--- NOTE | 2024-07-16 12:41 | SWNOTE1 ---
[facility]D called and set up [facility] for 3:00 for pt to go to [facility] skilled. OSWALD notified nurse, August at [facility], and pt's of time. OSWALD faxed dc med rec, dc summary, and other updates to [facility]. [facility]D updated packet and took to med/surge floor. [facility]WALD already completed HENS on 07/11/24.
--- NOTE | 2024-07-16 14:06 | PC.NURSE ---
Report called to [facility]
== END 2024-07-16 15:28 | DRG 698 ==
LOC: ER 16:59 → MS 17:20
PROVIDERS: Family Medicine; Registered Nurse; Admitting Provider Internal Medicine; Emergency Provider Emergency Medicine; PCP Family Medicine; Visit Provider Internal Medicine
DX: T83.511A Infection and inflammatory reaction due to indwelling urethral catheter, initial encounter (principal); A41.02 Sepsis due to Methicillin resistant Staphylococcus aureus; R65.20 Severe sepsis without septic shock; G93.41 Metabolic encephalopathy; E87.20 Acidosis, unspecified; N17.9 Acute kidney failure, unspecified; D68.9 Coagulation defect, unspecified; N39.0 Urinary tract infection, site not specified; R68.0 Hypothermia, not associated with low environmental temperature; R06.03 Acute respiratory distress; R09.02 Hypoxemia; R79.89 Other specified abnormal findings of blood chemistry; E88.09 Other disorders of plasma-protein metabolism, not elsewhere classified; E78.00 Pure hypercholesterolemia, unspecified; K21.9 Gastro-esophageal reflux disease without esophagitis; F32.A Depression, unspecified; N40.0 Benign prostatic hyperplasia without lower urinary tract symptoms; Z87.01 Personal history of pneumonia (recurrent); Z87.440 Personal history of urinary (tract) infections; G47.33 Obstructive sleep apnea (adult) (pediatric); Z79.84 Long term (current) use of oral hypoglycemic drugs; Z79.82 Long term (current) use of aspirin; D69.6 Thrombocytopenia, unspecified; E83.42 Hypomagnesemia; R60.0 Localized edema; E11.65 Type 2 diabetes mellitus with hyperglycemia; E11.22 Type 2 diabetes mellitus with diabetic chronic kidney disease; N18.31 Chronic kidney disease, stage 3a; E03.9 Hypothyroidism, unspecified; Z79.890 Hormone replacement therapy; Y73.2 Prosthetic and other implants, materials and accessory gastroenterology and urology devices associated with adverse incidents
CPT/HCPCS: 36415; 51702; 70450; 71045; 80053; 81001; 82800; 82948; 83605; 83735; 83880; 84484; 85025; 85610; 87040; 87086; 87186; 87804; 87811; 93005; 94640; 94667; 94668; 94761; 96361; 96365; 97110; 97112; 97161; 97165; 97530; 97535; 99285; G0328; J1650; J1720; J2020; J2543; J3475; J3480